=== PATIENT | female | born 1950 | race Caucasian/White ===

== ENCOUNTER 2018-08-06 15:25 | Emergency (ER) | payer BC, MEDICARE ==
[~2018-08-06 15:25] MED LIST: ISOVUE-370 76%-LOCM 1 ML ONE
[2018-08-06] MEDS ORDERED: Ondansetron PF 4 MG/2 ML Vial ONE (16:40)
[2018-08-06] MEDS ORDERED: Pantoprazole 40 MG VIAL ONE (16:40)
[2018-08-06 16:50] LABS: #Eosinphils 0.1 thou/uL (0.0-0.7); #Lymphocytes 2.1 thou/uL (1.20-3.40); #Monocytes 0.5 thou/uL (0.11-0.59); #Neutrophils 6.2 thou/uL (1.40-6.50); %Basophils 0.5 % (0.0-1.0); %Eosinophils 0.9 % (0.0-10.0); %Lymphocytes 23.7 % (21.0-51.0); %Monocytes 5.2 % (0.0-10.0); %Neutrophils 69.8 % (42.0-75.0); Hemoglobin 12.1 g/dL (12.0-16.0); Mean Corpuscular HGB CONC 32.2 g/dL (32.0-36.0); Mean Corpuscular Hemoglobin 28.5 pg (27.0-31.0); Mean Corpuscular Volume 88.5 fL (78.0-98.0); Mean Platelet Volume 6.2 fL (7.4-10.4); Platelet Count 341 thou/uL (130-400); RBC Distribution Width 12.7 % (11.5-14.5); Red Blood Cell (RBC) Count 4.26 mill/uL (4.20-5.40); White Blood Cell (WBC) Count 8.9 thou/uL (4.8-10.8)
[2018-08-06 16:55] LABS: INR-International Normal Ratio 0.9; PTT 18.7 SEC (22.9-36.1); Prothrombin Time 11.7 SEC (12.0-14.7)
[2018-08-06 17:06] LABS: ALT (SGPT) 14 U/L (8-55); AST (SGOT) 19 U/L (5-34); Albumin 4.3 g/dL (3.4-4.8); Alkaline Phosphatase 69 U/L (40-150); Anion Gap 15 mmol/L (10-20); BUN (Urea Nitrogen) 35 mg/dL (9.8-20.1); Bilirubin, Total 0.5 mg/dL (0.2-1.2); Calc. Creatinine Clearance 0 mL/min (70-130); Calcium 9.6 mg/dL (7.8-10.44); Carbon Dioxide 21 mmol/L (23-31); Chloride 106 mmol/L (98-107); Estimated GFR-MDRD 79; Globulin 2.8 g/dL (2.4-3.5); Glucose 108 mg/dL (80-115); Potassium 4.4 mmol/L (3.5-5.1); Protein, Total 7.1 g/dL (6.0-8.3); Sodium 138 mmol/L (136-145)
[2018-08-06] MEDS ORDERED: Promethazine HCl 25 MG/ML VIAL ONE (17:52)
--- NOTE | 2018-08-06 19:08 | CT ---
CT ABDOMEN AND PELVIS WITH IV CONTRAST: 08/06/18 Multiple axial tomograms obtained through the abdomen and pelvis with IV enhancement. INDICATIONS: Abdominal pain with nausea and weakness. Lung bases are clear. Liver, spleen, and pancreas unremarkable. Adrenal glands appear normal. Kidneys show no acute process. There are three low density cystic lesions in the left kidney each john suring 8 to 10 mm. No hydronephrosis. The small bowel loops are normal caliber. Appendix is not identified. Colon is unremarkable. Aorta sh ows atherosclerotic changes. Urinary bladder unremarkable. IMPRESSION: No acute process identified. POS: [facility]
== END 2018-08-06 19:00 | disposition home or self-care (01) ==
LOC: ERS 15:25
DX: R11.2 Nausea with vomiting, unspecified (principal); R10.13 Epigastric pain; I10 Essential (primary) hypertension; E78.5 Hyperlipidemia, unspecified; F32.9 Major depressive disorder, single episode, unspecified; F17.210 Nicotine dependence, cigarettes, uncomplicated
CPT/HCPCS: 74177; 80053; 82274; 83690; 83880; 84484; 85025; 85610; 85730; 86850; 86900; 86901; 93005; 94760; 96361; 96374; 96375; C9113; J2405; J2550; Q9966

== ENCOUNTER 2019-02-26 02:44 | Inpatient (IN) | payer BC, MEDICARE ==
[2019-02-26 03:26] LABS: Mean Corpuscular HGB CONC 32.8 g/dL (32.0-36.0); Mean Corpuscular Hemoglobin 26.3 pg (27.0-31.0); Mean Corpuscular Volume 80.2 fL (78.0-98.0); Mean Platelet Volume 8.1 fL (7.4-10.4); Platelet Count 267 thou/uL (130-400); RBC Distribution Width 17.5 % (11.5-14.5); Red Blood Cell (RBC) Count 4.56 mill/uL (4.20-5.40); White Blood Cell (WBC) Count 19.8 thou/uL (4.8-10.8)
[2019-02-26 03:27] LABS: Band 30 % (5-11); Crenated RBC SLIGHT = 1-5 cells (100X) (None Seen); Lymphocytes 3 % (21-51); MDiff Complete? YES; Neutrophil 67 % (42-75); Platelet Morphology Comment Appears Adequate
[2019-02-26] MEDS ORDERED: Norepinephrine 8 MG/0.9% NS 250 ML ONE (03:31)
[2019-02-26] MEDS ORDERED: Hydrocortisone Sod Succ/PF 100 mg/2 ml Vial ONE (04:51)
[2019-02-26 05:03] LABS: Bacteria/HPF 3+ HPF (None Seen); Bilirubin Negative (Negative); Blood, Urine 3+ (Negative); Clarity Extra Turbid (Clear); Glucose, Urine (Dipstick) Normal (Negative); Leukocyte 500 Leu/uL (Negative); Nitrite 2+ (Negative); Protein, Urine (Dipstick) 50 mg/dL (Neg-Trace); RBC/HPF 21-50 HPF (0-3); Squamous Epithelial 0-3 HPF (0-3); Urobilinogen Normal mg/dL (Less than 2); WBC/HPF Greater than 50 HPF (0-3)
[2019-02-26] MEDS ORDERED: EPINEPHrine 1 MG, Admixture Fee 1 EACH in Dextrose 5% in Water 250 ML IVPB SCH (05:15)
[2019-02-26 05:59] LABS: Lactic Acid 1.4 mmol/L (0.5-2.2)
[2019-02-26] MEDS: Sodium Chloride 0.9% 1,000 ML IV SCH ×2 (06:00→20:13)
[2019-02-26] MEDS ORDERED: Piperacillin/Tazobactam 3.375 GM in Sodium Chloride 0.9% 100 ML IVPB SCH (06:00)
[2019-02-26] MEDS ORDERED: Norepinephrine 8 MG/0.9% NS 250 ML IVPB SCH (06:05)
[2019-02-26] MEDS: Dextrose 5 % And 0.9 % NaCl 1,000 ML IV SCH ×2 (07:00→08:19)
--- NOTE | 2019-02-26 07:01 | HP ---
PRESENTING COMPLAINT: Weakness and recurrent diarrhea. HISTORY OF PRESENT ILLNESS: Ms. Carlee Rowan is a 69-year-old female with past medical history of hypertension, pacemaker placement, and hyperlipidemia, who presented today because of increasing weakness since the last 1 week as well as diarrhea since 1 week. The patient has felt very fatigued this evening and has gone to the Urgent Care. There, she was noted with hypotension with systolic blood pressure in the 70s over 40s. She was given IV fluid. She was noted with a hemoglobin of 8.2 and given 2 units of PRBC and transferred to the emergency room. In the emergency room, repeat hemoglobin is up to 12. The patient still continued to have hypotension and she has been started on Levophed. She has received an extra 1 L of bolus totaling 3 L and her blood pressure is still 80/40. The patient is mentating, though admits to fatigue. She states she has been having diarrhea with noted black tarry stools since the last couple of days. Rectal exam in the ED shows blood in the gloves finger. ED staff reported that the patient initially had oozing in her diaper on presentation, but oozing has since stopped. The patient denies any nausea or vomiting. She denies any chest pain. She is unsure of her home medications, which she did not bring with her. She denies any prior history of GI bleed or EGD in the past. SOCIAL HISTORY: Patient admits to tobacco use, smokes about a pack a day. She denies any alcohol or illicit drug use. She lives alone in the community. She states she has a son who lives in the nearby area. PAST MEDICAL HISTORY: Hypertension, hyperlipidemia, pacemaker placement. PAST SURGICAL HISTORY: Pacemaker placement. ALLERGIES: NO KNOWN DRUG ALLERGIES. HOME MEDICATIONS: Not available. The patient does not know her medications. FAMILY HISTORY: She denies any history of CAD or colon cancer. REVIEW OF SYSTEMS: Poor given the patient's fatigue, but the patient denies every other symptoms except as noted above. PHYSICAL EXAMINATION: VITAL SIGNS: Current blood pressure of 85/40, pulse of 90, respiratory rate of 18, O2 saturation is 94 on room air, temperature of 99.5. GENERAL: Elderly-looking female, calm, not in any distress. HEENT: Pupils equal and reactive to light. Extraocular motor movement intact. Head is atraumatic, normocephalic. Lynch conjunctivae now. Dry oral mucosa. RESPIRATORY: Good air entry. No crepitation. CARDIOVASCULAR: S1, S2. No murmur. GI: Abdomen is full, soft, nontender. Bowel sounds positive. RECTAL: Noticed some areas of abrasion around the perianal area, but no active oozing. Tenderness on palpation of the area. Previous rectal exam conducted by the ED physician. EXTREMITIES: No calf tenderness. No pedal edema. NEURO: Patient is slightly fatigued, but conversant. Moving all extremities well. LABORATORY DATA: Initial labs at [facility] facility shows PT of 16.9, INR of 1.4, and PTT 28. Sodium 133, potassium 3.4, bicarb 16, BUN 85, creatinine 1.6. T bilirubin of 0.3, albumin of 2.1. Initial hemoglobin of 8.2. Repeat labs showed WBC of 19.8, hemoglobin of 12, platelets of 267, 30% bands. Chest x-ray shows no acute abnormality. Urinalysis shows greater than 50 wbc's with 21 to 50 rbc's and 3+ bacteria. IMPRESSION: 1. Septic shock. 2. Gastrointestinal bleed. 3. Hypotension. 4. Urinary tract infection. 5. History of pacemaker placement. PLAN: 1. Septic shock. Admit the patient to the intensive care unit. We will continue IV pressors with Levophed. We will give extra IV fluid boluses for another 2 L and continue to monitor H and H. We will start empirical antibiotics with Vanco, Zosyn and Levaquin. We will obtain blood culture x2. Follow repeat lactic acid level. 2. GI bleed. We will keep patient n.p.o. GI has been consulted. We will start IV Protonix drip. 3. Urinary tract infection, may be etiology of sepsis. Follow urine culture. Continue Levaquin and Zosyn. 4. Advance directives. The patient wishes to be full code. 5. Tobacco use. We will do nicotine patch. 6. DVT prophylaxis. We will do SCDs. No systemic heparin for now. Total time spent in review of record, discussion with patient, and evaluation, greater than 60 minutes. Job ID: [id number]
--- NOTE | 2019-02-26 08:04 | RAD ---
XR Chest 1 View Portable History: Central line placement Comparison: Radiograph same day Findings: New right IJ central venous catheter with tip poorly seen due to the overlying pacer wires Impression: No pneumothorax post IJ central venous catheter placement.
[2019-02-26] MEDS: Piperacillin/Tazobactam 3.375 GM in Sodium Chloride 0.9% 100 ML IVPB SCH ×3 (08:08→20:11)
[2019-02-26] MEDS: Pantoprazole 80 MG, Admixture Fee 1 EACH in Sodium Chloride 0.9% 100 ML IVP SCH ×2 (08:12→18:34)
[2019-02-26 10:13] LABS: Anion Gap 12 mmol/L (10-20); BUN (Urea Nitrogen) 68 mg/dL (9.8-20.1); Calc. Creatinine Clearance 45 mL/min (70-130); Calcium 7.3 mg/dL (7.8-10.44); Carbon Dioxide 19 mmol/L (23-31); Chloride 110 mmol/L (98-107); Estimated GFR-MDRD 41; Glucose 144 mg/dL (80-115); Potassium 3.9 mmol/L (3.5-5.1); Sodium 137 mmol/L (136-145)
[2019-02-26 10:21] LABS: Troponin I Less than 0.010 ng/mL (< 0.028)
[2019-02-26] MEDS: Nicotine 14 MG PATCH TD SCH (11:32)
[2019-02-26 12:32] LABS: Hemoglobin 9.3 g/dL (12.0-16.0)
[2019-02-26] MEDS ORDERED: Sodium Chloride 0.9% 1,000 ML IV SCH (13:30)
[2019-02-26] MEDS: Sodium Chloride 0.45% 1,000 ML IV SCH ×2 (14:11→18:35)
[2019-02-26] MEDS ORDERED: Heparin 1,000 UNITS/ML VIAL ONE (15:14)
[2019-02-26] MEDS: valACYclovir 500 MG TAB PO SCH (20:13)
--- NOTE | 2019-02-26 22:02 | CON ---
DATE OF CONSULTATION: 02/26/2019 REASON FOR CONSULT: Hematochezia. HISTORY OF PRESENT ILLNESS: Ms. Bejarano is a pleasant 69-year-old female who was transferred from an outside emergency room with melena and a concern for sepsis. She apparently was given 2 units of blood at the outside facility before arrival here. She reports that she got ill about 2 weeks ago with dry heaves and diarrhea. The vomiting was nonproductive. There was not a lot of abdominal pain and she began to have diarrhea with grainy dark stool that was very liquid like and very slimy. Ultimately, she began to get weaker and weaker and finally came to the emergency room. Her hemoglobin back in July of this year was 12.1; at midnight last night, her hemoglobin was 8.2. The MCV was noted to be 75. Her platelet count was 292. She received 2 units of blood here and her hemoglobin was 12 at 3 this morning. Here, she was started on pressors with initially Levophed and epi, she is just on 6 mcg of epi now. She has been started on a Protonix drip as well. She has had no vomiting and no bowel movements. She was given a liter of fluid on arrival to the ICU and she is going at 150 mL an hour now. In the outside emergency room, she had a hemoglobin of 8.2 and a white count of 18. Her BUN was 85 and her creatinine was 1.6 . The patient states she takes a 1000 mg of Motrin daily. PAST MEDICAL HISTORY: Hypertension, hyperlipidemia, pacemaker placement, stent placement. PAST SURGICAL HISTORY: section, cholecystectomy. She has had her tubal ligation. She has had 2 cardiac stents. She sees Dr. Raul Purvis for Cardiology. Hysterectomy, some orthopedic surgery on her feet as well. SOCIAL HISTORY: She denies alcohol. She does smoke. She used to do drugs a long time ago, even including IV drugs. She reports that she has been tested for hepatitis C and has been negative. MEDICINES: She does not have a good feel for her home medicines. At home, the only thing she recalls is the sertraline. Medications here: 1. Tylenol. She has been started on: 1. Fluzone. 2. Levofloxacin. 3. Nicotine patch. 4. Levophed down to 6. 5. Protonix drip. 6. Zosyn. 7. Pneumococcal injection for immunization. 8. Zoloft. 9. Normal saline half at 150 an hour. 10. Valtrex. 11. Vancomycin. PHYSICAL EXAMINATION: GENERAL: She is resting comfortably in bed. VITAL SIGNS: Pulse is 65, blood pressure 106/62, temperature is 98, she has been afebrile since admission. In's and out's out through her Palencia catheter. GENERAL: She is pale. Conjunctivae are pale. Sclerae are nonicteric. Oropharynx without lesions, it is somewhat dry. LUNGS: Clear. HEART: Regular rate and rhythm without clicks, rubs, or murmurs. ABDOMEN: Soft. Positive bowel sounds. EXTREMITIES: No clubbing, cyanosis, or edema. RECTAL: Perianal excoriation is present. Melena is noted on rectal exam. LABORATORY DATA: Hemoglobin at 12 was 9.3; BUN, at 9, was down to 68, creatinine 1.28, calcium 7.7, alkaline phosphatase is 148, AST and ALT were 16 and 9, protein 5, albumin 2. Troponins were negative. Urine showed white blood cells, greater than 50 red blood cells, positive blood and nitrites. IMAGING: She had a chest x-ray that was negative. ASSESSMENT: Melena. This could be the whole problem and it sounds like she was having coffee-ground like stool and slimy stools for 2 weeks after heavy retching. She uses NSAIDs 1000 mg a day. She probably has an ulcer. She has had no bowel movement since admission. She is being still on some pressors, probably needs to be switched to normal saline for resuscitation fluids. Her elevated BUN indicated there was severe prerenal azotemia on admission with dehydration from hemorrhagic shock or possibly some type of infectious process or she may have just had elevated BUN related blood absorption in the GI tract. RECOMMENDATIONS: 1. Follow up on blood cultures from [facility]. 2. Serial H and Hs. 3. N.p.o. 4. EGD tomorrow. 5. Change IV fluid to normal saline from half-normal saline. Job ID: [id number]
[2019-02-26 22:14] LABS: Hemoglobin 8.6 g/dL (12.0-16.0)
--- NOTE | 2019-02-27 01:44 | CON ---
DATE OF CONSULTATION: HISTORY OF PRESENT ILLNESS: Ms. Bejarano is a 69-year-old female, who was interviewed this morning. Per her history, she has not felt good for several weeks. She has had diarrhea and progressive weakness. A month ago, she said she was doing great. Her family confirms that. She apparently presented with hypotension after presenting to urgent care. She is subsequently also found to be anemic and since she was hypotensive and anemic, she was transfused. She received IV fluids and pressors and central line and subsequently has been admitted. PAST MEDICAL HISTORY: Remarkable for hypertension, lipid disorder, and pacemaker. She is a pack-a-day smoker. She does not drink. She lives alone. FAMILY HISTORY: Negative for lung disease in early age. ALLERGIES: REPORTS NO DRUG ALLERGIES. REVIEW OF SYSTEMS: 10-point review of systems otherwise negative. She denies nausea, vomiting, or bloody diarrhea. PHYSICAL EXAMINATION: GENERAL: She is little slow to respond to questions, but looks reasonably comfortable. VITAL SIGNS: Heart rate is in the 60s, blood pressure is 117/78 this evening, respiratory rate is 20, oximetry is 97%. Pupils are equal. Sclerae are anicteric. NECK: Supple. No lymphadenopathy. LUNGS: Clear. HEART: Regular rhythm. S1, S2 are normal. ABDOMEN: Soft and nontender. EXTREMITIES: Without clubbing, cyanosis, or edema. LABORATORY DATA: Hemoglobin at 3 o'clock this morning was 12; at noon, it was 9.3. Electrolytes remarkable for an increased chloride at 110 and decreased bicarb at 19, BUN 68, creatinine 1.28. Creatinine was 1.61 at midnight. IMPRESSION: 1. Intravascular volume depletion. 2. Probable mixed anemia with some component of blood loss, although, she is not acutely bleeding now. 3. Hyperchloremic acidosis secondary to volume resuscitation. First bicarb is 103, now is 110. Fluids have been switched to half-normal saline. 4. She will remain in the critical care unit. GI has been consulted. It is anticipated she will have endoscopy in the morning. 5. It is interesting to note that she has an albumin of 2.1, which is unexplained. Urinalysis did not show significant proteinuria. No coags have been collected. We will follow the other physicians caring for. 70 minute consult with 50% of time on unit coordinating care Job ID: [id number] [facility]
[2019-02-27] MEDS: Pantoprazole 80 MG, Admixture Fee 1 EACH in Sodium Chloride 0.9% 100 ML IVP SCH (02:04)
[2019-02-27] MEDS: Piperacillin/Tazobactam 3.375 GM in Sodium Chloride 0.9% 100 ML IVPB SCH ×2 (02:04→07:53)
[2019-02-27] MEDS: Sodium Chloride 0.45% 1,000 ML IV SCH ×3 (02:04→14:00)
[2019-02-27] MEDS ORDERED: Vancomycin HCl 1 GM in Premix Bag 1 BAG IVPB SCH (04:00)
[2019-02-27 04:49] LABS: Anion Gap 10 mmol/L (10-20); BUN (Urea Nitrogen) 35 mg/dL (9.8-20.1); Calc. Creatinine Clearance 64 mL/min (70-130); Calcium 7.4 mg/dL (7.8-10.44); Carbon Dioxide 20 mmol/L (23-31); Chloride 116 mmol/L (98-107); Estimated GFR-MDRD 61; Glucose 108 mg/dL (80-115); Potassium 3.6 mmol/L (3.5-5.1); Sodium 142 mmol/L (136-145)
[2019-02-27 04:57] LABS: HIV (1/2) Antibody/Antigen Non-Reactive (NonReactive); HIV 1/2 INDEX 0.08 S/CO (<1.00)
[2019-02-27 05:15] LABS: Anisocytosis SLIGHT = 6-15 cells (100X) (0-5/hpf); Band 25 % (5-11); Burr Cells SLIGHT = 2-5 cells (100X) (0-1/hpf); Hemoglobin 8.4 g/dL (12.0-16.0); Lymphocytes 4 % (21-51); MDiff Complete? YES; Mean Corpuscular HGB CONC 33.4 g/dL (32.0-36.0); Mean Corpuscular Hemoglobin 26.9 pg (27.0-31.0); Mean Corpuscular Volume 80.5 fL (78.0-98.0); Mean Platelet Volume 7.9 fL (7.4-10.4); Monocytes 2 % (0-10); Neutrophil 69 % (42-75); Platelet Count 291 thou/uL (130-400); Platelet Morphology Comment Appears Adequate; RBC Distribution Width 17.7 % (11.5-14.5); Red Blood Cell (RBC) Count 3.11 mill/uL (4.20-5.40); White Blood Cell (WBC) Count 17.9 thou/uL (4.8-10.8)
[2019-02-27] MEDS: Nicotine 14 MG PATCH TD SCH (06:05)
[2019-02-27 06:20] LABS: Hemoglobin 8.5 g/dL (12.0-16.0)
[2019-02-27] MEDS: valACYclovir 500 MG TAB PO SCH (08:15)
[2019-02-27] MEDS ORDERED: PHENYLEPHRINE-NS 100 MCG/ML 10 ML SYRINGE ONE (09:24)
[2019-02-27] MEDS ORDERED: Lidocaine 1% PF 5 ML VIAL ONE (09:24)
[2019-02-27] MEDS ORDERED: ePHEDrine/0.9% NaCl/PF SYRINGE 50 mg/10 ml ONE (09:24)
[2019-02-27] MEDS ORDERED: PROPOFOL 200 MG/20 ML VIAL ONE (09:24)
[2019-02-27] MEDS ORDERED: Promethazine HCl 25 MG/ML VIAL SLOW IVP PRN (11:46)
[2019-02-27] MEDS ORDERED: Ondansetron HCl/PF 4 MG/2 ML Vial IVP PRN (11:46)
[2019-02-27] MEDS ORDERED: Promethazine HCl 25 MG/ML VIAL IM PRN (11:46)
[2019-02-27] MEDS ORDERED: Prevnar 13-Val Conj/PF 0.5 ML SYRINGE IM ONE (12:15)
[2019-02-27] MEDS ORDERED: FLU VACC TS2019-20(65YR UP)/PF 180 MCG/0.5 ML SYRINGE IM ONE (12:15)
--- NOTE | 2019-02-27 13:31 | PRG ---
DATE OF SERVICE: 02/27/2019 SUBJECTIVE: The patient was seen and examined at the bedside. She feels significantly better. She had 3 black tarry stools in the last 24 hours. OBJECTIVE: VITAL SIGNS: Blood pressure is 116/70, pulse is 61, respiratory rate is 19, and O2 saturation 97%. HEENT: Her head is atraumatic and normocephalic. Eyes are PERRLA. Sclerae are nonicteric. Conjunctivae palish. Oral mucosa is still somewhat dry. NECK: Supple. LUNGS: Clear. HEART: S1, S2 normal. No S3. No S4. ABDOMEN: Soft. Mildly tender in the epigastric area. No guarding. No masses. EXTREMITIES: No clubbing, cyanosis, or edema. NEUROLOGIC: She is alert and oriented x4. There are no any motor deficits. LABORATORY DATA: Labs showed hemoglobin of 8.4, hematocrit 25.0, white count of 17.9, and platelet count 291,000. Sodium of 142, potassium 3.6, chloride 116, CO2 of 20, BUN 35, creatinine 0.91, and calcium 7.4. HIV 1 and 2 antigen and antibodies not reactive. IMPRESSION: 1. Sepsis with shock and positive blood cultures 2/2 for Escherichia coli. Source is urinary tract, which is urine culture growing the same organism, Escherichia coli sensitivity pending. 2. Gastrointestinal bleed, for EGD. This morning, her hemoglobin dropped from 12 to 8. 3. Hypotension, secondary to #1. 4. Urinary tract infection with Escherichia coli. 5. History of pacemaker placement. PLAN: I am going to stop her vancomycin and Levaquin. We will continue Zosyn. We will continue her PPI. She was scheduled for EGD today. We will continue her Zoloft, and we just found out that she has been taking some other medications. She did not tell us about yesterday, so we will reconcile that, and most likely, we will make some addition to her current regimen. She will remain in ICU until she is more stable. Job ID: [id number]
--- NOTE | 2019-02-27 13:49 | ULT ---
EXAM: US Renal Bilateral STANDARD PROVIDED CLINICAL HISTORY: Sepsis COMPARISON: None FINDINGS: Right kidney measures approximately 11.8 x 6 x 6.3 cm and demonstrates no evidence for hydronephrosis , sonographically apparent calculus or mass. Left kidney measures approximately 13.3 x 5.6 x 6.9 cm and demonstrates no evidence for hydronephrosi s, sonographically apparent calculus or mass. Urinary bladder appears sonographically unremarkable. IMPRESSION: No evidence for hydronephrosis.
--- NOTE | 2019-02-27 13:53 | PRG ---
DATE OF SERVICE: 02/27/2019 SUBJECTIVE: Ms. Bejarano says she is feeling better. She was found to have an ulcer. This was biopsied. Hemodynamics have been stable. OBJECTIVE: VITAL SIGNS: She is afebrile. Heart rate is 72, blood pressure 116/70, oximetry is 95%. LUNGS: Clear. HEART: Regular rate, rhythm. ABDOMEN: Soft. EXTREMITIES: Without edema. NEUROLOGIC: Grossly nonfocal. LABORATORY DATA: White count 17.9, hemoglobin 8.4, platelets 291. Hemoglobin stable at 8.5. Sodium 142, potassium 3.6, chloride 116, bicarb 20, BUN 35, creatinine 0.91. IMPRESSION: 1. Anemia and hypotension, likely secondary to combination of intravascular volume depletion and a slowly or intermittently bleeding ulcer. 2. Pack-a-day smoker, and she was wheezing earlier today, but is not now. 3. History of chronic nonsteroidal use. Apparently, she was taking 1 g of ibuprofen a day. 4. Mild hyperchloremic acidosis, most likely related to volume resuscitation. PLAN: Continue current care. She probably is stable to move out in the morning. She is a candidate to move to a medical bed this evening really if bed is needed if she has a good afternoon. ADDENDUM: It is incidentally noted that she has a urinary tract infection with E coli. We are awaiting sensitivities. She will continue on Zosyn. I will discontinue her Levaquin. Job ID: [id number]
[2019-02-27 13:58] LABS: Hemoglobin 8.5 g/dL (12.0-16.0)
[2019-02-27 14:18] VITALS: BMI 25.9
[2019-02-27] MEDS: Pantoprazole 40 MG VIAL IVP SCH (20:38)
[2019-02-28] MEDS: Ondansetron PF 4 MG/2 ML Vial IVP PRN (01:35)
[2019-02-28] MEDS: Sodium Chloride 0.45% 1,000 ML IV SCH ×2 (02:45→13:42)
[2019-02-28 06:02] LABS: Anisocytosis SLIGHT = 6-15 cells (100X) (0-5/hpf); Band 18 % (5-11); Burr Cells SLIGHT = 2-5 cells (100X) (0-1/hpf); Hemoglobin 8.1 g/dL (12.0-16.0); Hypochromia SLIGHT = 6-15 cells (100X) (0-5/hpf); Lymphocytes 4 % (21-51); MDiff Complete? YES; Mean Corpuscular Hemoglobin 24.7 pg (27.0-31.0); Mean Corpuscular Volume 79.6 fL (78.0-98.0); Mean Platelet Volume 7.9 fL (7.4-10.4); Monocytes 2 % (0-10); Neutrophil 76 % (42-75); Platelet Count 368 thou/uL (130-400); Platelet Morphology Comment Appears Adequate; Red Blood Cell (RBC) Count 3.27 mill/uL (4.20-5.40); White Blood Cell (WBC) Count 13.6 thou/uL (4.8-10.8)
[2019-02-28] MEDS: Nicotine 14 MG PATCH TD SCH (06:03)
[2019-02-28] MEDS: Pantoprazole 40 MG VIAL IVP SCH ×2 (08:37→20:09)
[2019-02-28] MEDS ORDERED: Cepastat Lozenges 1 LOZ PO PRN (11:37)
--- NOTE | 2019-02-28 12:58 | PRG ---
DATE OF SERVICE: 02/26/2019 SUBJECTIVE: Ms. Bejarano is doing well in the ICU. She is complaining of burning mouth. She has had no bleeding. OBJECTIVE: VITAL SIGNS: Heart rate is 77, temperature max is 100.3, blood pressure 126/63. GENERAL: She is very pale. She is thin. She is deconditioned. CHEST: Clear. HEART: Regular rhythm. ABDOMEN: Nontender. LABORATORY DATA: White count down from 17 to 13, hemoglobin is 8.1, platelet count 368. BUN and creatinine are 35 and 0.9, down from 68 and 1.2. Sodium is 142. Potassium is 3.6. ASSESSMENT: 1. GI hemorrhage secondary to a large gastric and duodenal ulcers, likely related to chronic NSAID use. 2. Diarrhea. C. difficile toxin negative. 3. Stable hemoglobin with no active bleeding. 4. E. coli urinary tract infection. RECOMMENDATIONS: 1. Continue IV PPI. 2. Advance diet as tolerated. 3. Avoid NSAIDs. 4. Await gastric and duodenal biopsies. Job ID: [id number]
--- NOTE | 2019-02-28 13:17 | PRG ---
DATE OF SERVICE: 02/28/2019 SUBJECTIVE: Ms. Bejarano has no complaints. OBJECTIVE: VITAL SIGNS: Heart rate is 72, blood pressure 126/63, and respiratory rate is 15. Intake and output are positive 840 mL. LUNGS: Clear. HEART: Regular rhythm. ABDOMEN: Soft and nontender. EXTREMITIES: Without edema. DIAGNOSTIC DATA: She is in sinus rhythm. White count is 13.6, hemoglobin 8.1, and platelets 368. Sodium 142, potassium 3.6, chloride 116, bicarb 20, BUN 35, and creatinine 0.91. IMPRESSION: 1. Anemia and hypotension secondary to combination of intravascular volume depletion and a slow gastrointestinal bleed. 2. Pack-a-day smoker. 3. 1000 mg a day of ibuprofen use, which contributed to her ulcer most likely. 4. Mild hyperchloremic acidosis. PLAN: She in my opinion to go to a medical bed if there are no telemetry beds. She is actually stable enough to go home. In my opinion, she can become ambulatory. She does have 18% bands on her peripheral smear today, but had 25% yesterday, so this is an improvement. Her maximum temperature is 100.3. Her Zosyn has been discontinued. I would continue to observe her with serial lab work. She is stable to move out of Critical Care. Job ID: [id number]
--- NOTE | 2019-02-28 13:20 | OP ---
DATE OF PROCEDURE: 02/27/2019 PREPROCEDURE DIAGNOSES: 1. Gastrointestinal hemorrhage with hemorrhagic shock, resolved. 2. Heavy use of NSAIDs. PROCEDURE PERFORMED: Esophagogastroduodenoscopy with biopsy. POSTPROCEDURE DIAGNOSES: 1. Large white based gastric ulcer 2 cm posterior wall of the gastric antrum. 2. Small erosions and ulcerations in the gastric antrum, body, nonbleeding, again likely secondary to NSAIDs. Biopsies obtained for Helicobacter pylori. 3. Duodenal ulcer, apex of the bulb and second portion with no active bleeding, biopsied. RECOMMENDATIONS: 1. IV Protonix q.12 hours. 2. Clear liquid diet. 3. Await biopsies. 4. Avoid all NSAIDs. ANESTHESIA: TIVA. PROCEDURE IN DETAIL: The patient was informed of the risks and benefits and possible complications of endoscopy including perforation, reaction to this medication. Informed consent was obtained. She was brought to the endoscopy suite, where she was sedated in gradual fashion. Once she was comfortable, bite block was placed inside the orifice. The endoscope was advanced through the esophagus, where there was old pill debris noted into the stomach, where there was no blood, but retroflexed views were normal. On evaluating the antrum of the stomach, there was a large 2-cm ulcer in the posterior wall of the antrum, white based, shallow, but there was no visible vessels. There was also small scattered erosions and ulcerations in the antrum consistent with NSAID ulceration. Biopsies were obtained to rule out H pylori malignancy. The scope was advanced to the duodenal bulb, which was normal. However, at the apex of the bulb and the second and third portions, there were friable ulcers with some slight ooze, but no visible vessels or active hemorrhage or clot. Biopsies were taken from these as well. The third portion of duodenum was normal. The scope was removed. The patient tolerated the procedure well. There were no complications. Job ID: [id number]
--- NOTE | 2019-02-28 19:30 | PDOC.HOSPP ---
- Subjective Encounter Date: 02/28/19 Encounter Time: 19:15 Subjective: f/u for GI bleed medically managed but no PRBC's required. Tx initially for sepsis but not on abx currently. - Objective Vital Signs & Weight: Vital Signs (12 hours) Temp Pulse Resp Pulse Ox 02/28/19 18:59 94 L 02/28/19 18:58 81 22 H 94 L 02/28/19 16:00 98.9 F 02/28/19 08:00 98.9 F 97 Weight Admit Weight 151 lb 7.321 oz Weight 151 lb 7.321 oz Most Recent Monitor Data Heart Rate from ECG 79 NIBP 134/67 NIBP BP-Mean 89 Respiration from ECG 23 SpO2 82 I&O: 02/27/19 02/28/19 03/01/19 06:59 06:59 06:59 Intake Total 4706 2865 888 Output Total 2660 2025 725 Balance 2046 840 163 Result Diagrams: 02/28/19 03:35 02/27/19 03:30 Additional Labs: Microbiology 02/27/19 12:10 Stool C. difficile GDH Antigen & Toxins - Final 02/26/19 04:40 Urine anderson catheter Urine Culture - Final Escherichia coli 02/26/19 01:00 Stool - Pending Stool Occult Blood (JOE) - Final 02/26/19 00:35 Venous blood - Neck Blood Culture - Final Escherichia coli 02/26/19 00:35 Venous blood - Neck Blood Culture - Final Escherichia coli 02/26/19 01:20 Urine Straight Catheter Urine Culture - Preliminary Escherichia coli Gram Negative Miguel A#2 Laboratory Tests 02/26/19 02/26/19 02/26/19 09:44 12:19 22:01 Hgb 9.3 L 8.6 L Band Neuts % (Manual) BUN 68 H Creatinine 1.28 H 02/27/19 02/27/19 02/27/19 03:30 06:05 13:45 Hgb 8.4 L 8.5 L 8.5 L Band Neuts % (Manual) 25 H BUN Creatinine 02/28/19 03:35 Hgb Band Neuts % (Manual) 18 H BUN Creatinine Radiology Reviewed by me: Yes (Renal sono - no hydronephrosis) EKG Reviewed by me: Yes (Tele - SR) Hospitalist ROS - Medication Medications: Active Medications Generic Name Dose Route Start Last Admin Trade Name Freq PRN Reason Stop Dose Admin Albuterol/Ipratropium 3 ml 02/28/19 01:55 02/28/19 18:58 Duoneb NEB 3 ml Q6H PRN Administration SOB/WHEEZE Sodium Chloride 1,000 mls @ 75 mls/hr 02/27/19 13:15 02/28/19 13:42 1/2 Normal Saline IV 1,[id number] Administration Nicotine 14 mg 02/26/19 06:15 02/28/19 06:03 Nicoderm Patch TD [address] Administration Ondansetron HCl 4 mg 02/26/19 06:09 02/28/19 01:35 Zofran IVP 4 mg Q6H PRN Administration Nausea/Vomiting Pantoprazole Sodium 40 mg 02/27/19 21:00 02/28/19 08:37 [address]ix IVP [address] Administration Sertraline HCl 50 mg 02/27/19 09:00 02/28/19 08:37 Zoloft PO [address] Administration Throat Lozenges 1 kaylee 02/28/19 11:37 02/28/19 12:16 Cepastat Lozenges PO 1 kaylee PRN PRN Administration ORAL PAIN - Exam General Appearance: NAD, awake alert Eye: PERRL, anicteric sclera ENT: normocephalic atraumatic, no oropharyngeal lesions Neck: supple, symmetric, no JVD, no thyromegaly Heart: RRR, no murmur, no gallops, no rubs Respiratory: CTAB, no wheezes, no rales, no ronchi Gastrointestinal: soft, non-tender, non-distended, normal bowel sounds Extremities: no cyanosis, no clubbing, no edema Skin: normal turgor, no lesions Neurological: cranial nerve grossly intact, no new deficit Musculoskeletal: normal tone, normal strength Psychiatric: normal affect, A&O x 3 Hosp A/P (1) Septic shock Code(s): A41.9 - SEPSIS, UNSPECIFIED ORGANISM; R65.21 - SEVERE SEPSIS WITH SEPTIC SHOCK Status: Acute Plan: Secondary to E. coli bacteremia from urinary source, start Cefepime, ? Zosyn previously (2) E coli bacteremia Code(s): R78.81 - BACTEREMIA Status: Acute Plan: Start Cefepime 1gm IV BID (3) GI bleed Code(s): K92.2 - GASTROINTESTINAL HEMORRHAGE, UNSPECIFIED Status: Acute Plan: Secondary to gastric/duodenal ulcers, no PRBC's transfused, PPI, serial H/H, avoid NSAIDs (4) Gastric ulcer Code(s): K25.9 - GASTRIC ULCER, UNSP ACUTE OR CHRONIC, W/O HEMOR OR PERF Status: Acute Plan: See above (5) Acute blood loss anemia Code(s): D62 - ACUTE POSTHEMORRHAGIC ANEMIA Status: Acute (6) LEIGH ANN (acute kidney injury) Code(s): N17.9 - ACUTE KIDNEY FAILURE, UNSPECIFIED Status: Acute Plan: Improved with volume replacement, avoid nephrotoxic meds and limit contrast exposure - Plan continue antibiotics, social service coordinator, DVT proph w/SCDs Stable currently Cefepime 1gm IV BID Continue IVF's Continue Protonix 40mg IV BID Restoril 15mg HS for insomnia AM lab: CBC
[2019-02-28] MEDS ORDERED: Temazepam 15 MG CAP PO PRN (19:41)
[2019-02-28] MEDS ORDERED: Melatonin 3 MG TAB PO PRN (19:41)
[2019-02-28] MEDS: Cefepime 1 GM in Sodium Chloride 0.9% 100 ML IVPB SCH (20:09)
[2019-03-01 05:48] LABS: Band 6 % (5-11); Eosinophils 1 % (0-10); Hemoglobin 7.8 g/dL (12.0-16.0); Lymphocytes 8 % (21-51); MDiff Complete? YES; Mean Corpuscular HGB CONC 33.4 g/dL (32.0-36.0); Mean Corpuscular Hemoglobin 26.6 pg (27.0-31.0); Mean Corpuscular Volume 79.7 fL (78.0-98.0); Mean Platelet Volume 7.9 fL (7.4-10.4); Monocytes 6 % (0-10); Neutrophil 79 % (42-75); Platelet Count 399 thou/uL (130-400); RBC Distribution Width 17.7 % (11.5-14.5); Red Blood Cell (RBC) Count 2.94 mill/uL (4.20-5.40); White Blood Cell (WBC) Count 8.6 thou/uL (4.8-10.8)
[2019-03-01] MEDS: Sodium Chloride 0.45% 1,000 ML IV SCH (06:10)
[2019-03-01] MEDS: Nicotine 14 MG PATCH TD SCH (06:10)
[2019-03-01] MEDS: Pantoprazole 40 MG VIAL IVP SCH (08:42)
[2019-03-01] MEDS: Cefepime 1 GM in Sodium Chloride 0.9% 100 ML IVPB SCH ×2 (08:43→20:52)
--- NOTE | 2019-03-01 09:54 | PDOC.HOSPP ---
- Subjective Encounter Date: 03/01/19 Encounter Time: 09:35 Subjective: f/u for GI bleed due to gastric ulceration and 2u PRBC's prior to ER evaluation and sepsis with E. coli bacteremia on current Cefepime. States feeling better overall but diminished appetite. - Objective Vital Signs & Weight: Vital Signs (12 hours) Temp Pulse Resp BP Pulse Ox 03/01/19 08:00 98.4 F 83 18 110/82 98 03/01/19 05:29 20 99 03/01/19 04:00 98.7 F 03/01/19 00:00 98.7 F Weight Admit Weight 151 lb 7.321 oz Weight 151 lb 7.321 oz Most Recent Monitor Data Heart Rate from ECG 78 NIBP 110/82 NIBP BP-Mean 91 Respiration from ECG 14 SpO2 88 I&O: 02/28/19 03/01/19 03/02/19 06:59 06:59 06:59 Intake Total 2865 1868 Output Total 2025 1225 Balance 840 643 Result Diagrams: 03/01/19 04:05 02/27/19 03:30 Additional Labs: Microbiology 02/27/19 12:10 Stool C. difficile GDH Antigen & Toxins - Final 02/26/19 04:40 Urine anderson catheter Urine Culture - Final Escherichia coli 02/26/19 01:00 Stool - Pending Stool Occult Blood (JOE) - Final 02/26/19 00:35 Venous blood - Neck Blood Culture - Final Escherichia coli 02/26/19 00:35 Venous blood - Neck Blood Culture - Final Escherichia coli 02/26/19 01:20 Urine Straight Catheter Urine Culture - Preliminary Escherichia coli Gram Negative Miguel A#2 Laboratory Tests 02/26/19 02/26/19 02/26/19 09:44 12:19 22:01 WBC Hgb 9.3 L 8.6 L Neutrophils % (Manual) Band Neuts % (Manual) BUN 68 H Creatinine 1.28 H 02/27/19 02/27/19 02/27/19 03:30 06:05 13:45 WBC Hgb 8.4 L 8.5 L 8.5 L Neutrophils % (Manual) Band Neuts % (Manual) 25 H BUN Creatinine 02/28/19 03/01/19 03:35 04:05 WBC 13.6 H Hgb 8.1 L Neutrophils % (Manual) 76 H 79 H Band Neuts % (Manual) 18 H 6 BUN Creatinine Hospitalist ROS - Medication Medications: Active Medications Generic Name Dose Route Start Last Admin Trade Name Freq PRN Reason Stop Dose Admin Albuterol/Ipratropium 3 ml 02/28/19 01:55 03/01/19 05:29 Duoneb NEB 3 ml Q6H PRN Administration SOB/WHEEZE Sodium Chloride 1,000 mls @ 75 mls/hr 02/27/19 13:15 03/01/19 06:10 1/2 Normal Saline IV 1,[id number] Administration Cefepime HCl 1 gm/ Sodium 100 mls @ 200 mls/hr 02/28/19 21:00 03/01/19 08:43 Chloride IVPB [address] Administration Melatonin 3 mg 02/28/19 19:41 02/28/19 20:08 Melatonin PO 3 mg HS PRN Administration Insomnia Nicotine 14 mg 02/26/19 06:15 03/01/19 06:10 Nicoderm Patch TD [address] Administration Ondansetron HCl 4 mg 02/26/19 06:09 02/28/19 01:35 Zofran IVP 4 mg Q6H PRN Administration Nausea/Vomiting Pantoprazole Sodium 40 mg 02/27/19 21:00 03/01/19 08:42 [address]ix IVP [address] Administration Sertraline HCl 50 mg 03/01/19 09:00 03/01/19 08:43 Zoloft PO [address] Administration Throat Lozenges 1 kaylee 02/28/19 11:37 02/28/19 12:16 Cepastat Lozenges PO 1 kaylee PRN PRN Administration ORAL PAIN - Exam General Appearance: awake alert General - other findings: pale Eye: PERRL, anicteric sclera ENT: normocephalic atraumatic, no oropharyngeal lesions Neck: supple, symmetric, no JVD, no thyromegaly Heart: RRR, no murmur, no gallops, no rubs, normal peripheral pulses Respiratory: CTAB, no wheezes, no rales, no ronchi Gastrointestinal: soft, non-tender, non-distended, normal bowel sounds, no palpable masses Extremities: no cyanosis, no clubbing, no edema Skin: normal turgor, no lesions Neurological: cranial nerve grossly intact, no new deficit Musculoskeletal: normal tone, normal strength Psychiatric: normal affect, A&O x 3 Hosp A/P (1) Septic shock Code(s): A41.9 - SEPSIS, UNSPECIFIED ORGANISM; R65.21 - SEVERE SEPSIS WITH SEPTIC SHOCK Status: Acute Plan: Improved, continue Cefepime IV and IVF's (2) E coli bacteremia Code(s): R78.81 - BACTEREMIA Status: Acute Plan: Continue Cefepime IV (3) GI bleed Code(s): K92.2 - GASTROINTESTINAL HEMORRHAGE, UNSPECIFIED Status: Acute Plan: s/p 2u PRBC's, continue PPI, serial H/H (4) Gastric ulcer Code(s): K25.9 - GASTRIC ULCER, UNSP ACUTE OR CHRONIC, W/O HEMOR OR PERF Status: Acute Plan: s/p Epinephrine/Cauterization, continue PPI, serial H/H (5) Acute blood loss anemia Code(s): D62 - ACUTE POSTHEMORRHAGIC ANEMIA Status: Acute Plan: Repeat H/H today at noon, CBC in am (6) LEIGH ANN (acute kidney injury) Code(s): N17.9 - ACUTE KIDNEY FAILURE, UNSPECIFIED Status: Acute Plan: Resolving - Plan continue antibiotics, PT/OT, social service director, out of bed/ambulate, DVT proph w/ SCDs Stable currently Cefepime 1gm IV BID Continue IVF's Continue Protonix 40mg IV BID Restoril 15mg HS for insomnia Lab: H/H today at noon AM lab: CBC
--- NOTE | 2019-03-01 11:31 | PRG ---
DATE OF SERVICE: 03/01/2019 SUBJECTIVE: Ms. Bejarano has no complaints. Her hemodynamics have been stable. She has had no fever. She denies shortness of breath. She was a heavy smoker, leading up to this admission. OBJECTIVE: VITAL SIGNS: She is afebrile. Heart rate 83, respiratory rate 18, oximetry 98% on 2 L, and blood pressure 110/82. LUNGS: Clear. HEART: Regular rhythm. ABDOMEN: Soft. LABORATORY DATA: Hemoglobin 7.8 today, it was 8.1 yesterday. Chloride is up to 116 from 110. She is still on half-normal saline. PLAN: We will switch her to D5W. Hopefully, this lead to correction of her mild hyperchloremia. We will continue to monitor in the hospital. Overall, she appears to be stable at this time. Job ID: [id number]
[2019-03-01] MEDS: Dextrose 5% in Water 1,000 ML IV SCH ×2 (11:39→20:55)
--- NOTE | 2019-03-01 11:56 | PRG ---
DATE OF SERVICE: 02/28/2019 SUBJECTIVE: Ms. Bejarano states she is feeling better. Her mouth pain has gone, it was burning yesterday. She is eating. OBJECTIVE: VITAL SIGNS: Temperature is 98, pulse 79, blood pressure 121/75. ABDOMEN: Soft and nontender. There is no rebound. There is no guarding. LABORATORY DATA: White count is 8, hemoglobin 7.8, and platelet count 399. BUN and creatinine are 35 and 0.9 and sodium 142. TSH 0.8. ASSESSMENT: 1. Gastrointestinal hemorrhage from large gastric ulcers, likely nonsteroidal anti-inflammatory drugs related. Biopsies pending. No active bleeding now. 2. Urinary tract infection. 3. Hemorrhagic shock on presentation. 4. Acute renal injury secondary to hemorrhagic shock, slowly improving. RECOMMENDATIONS: Continue PPI, can switch to oral. Await biopsies. Advance diet as tolerated. Job ID: [id number]
[2019-03-01 14:56] LABS: Platelet Count 493 thou/uL (130-400)
[2019-03-02 05:34] LABS: #Lymphocytes 1.1 thou/uL (1.20-3.40); #Monocytes 0.4 thou/uL (0.11-0.59); %Basophils 0.1 % (0.0-1.0); %Eosinophils 0.4 % (0.0-10.0); %Lymphocytes 12.8 % (21.0-51.0); %Monocytes 5.1 % (0.0-10.0); %Neutrophils 81.6 % (42.0-75.0); Hemoglobin 8.9 g/dL (12.0-16.0); Mean Corpuscular HGB CONC 33.1 g/dL (32.0-36.0); Mean Corpuscular Hemoglobin 26.5 pg (27.0-31.0); Mean Corpuscular Volume 79.9 fL (78.0-98.0); Mean Platelet Volume 7.4 fL (7.4-10.4); Platelet Count 558 thou/uL (130-400); RBC Distribution Width 17.3 % (11.5-14.5); Red Blood Cell (RBC) Count 3.37 mill/uL (4.20-5.40); White Blood Cell (WBC) Count 8.6 thou/uL (4.8-10.8)
[2019-03-02] MEDS: Nicotine 14 MG PATCH TD SCH (06:17)
[2019-03-02] MEDS: Cefepime 1 GM in Sodium Chloride 0.9% 100 ML IVPB SCH ×2 (08:48→21:10)
[2019-03-02] MEDS: Dextrose 5% in Water 1,000 ML IV SCH (13:30)
--- NOTE | 2019-03-02 14:55 | PDOC.HOSPP ---
- Subjective Encounter Date: 03/02/19 Encounter Time: 14:50 Subjective: f/u for septic shock from UTI and GI bleed from gastric ulceration s/p 2u PRBC' s. Feels better overall but weak and decreased appetite. - Objective Vital Signs & Weight: Vital Signs (12 hours) Temp Pulse Resp BP Pulse Ox 03/02/19 09:02 85 22 H 95 03/02/19 09:00 95 03/02/19 07:03 98.3 F 81 17 128/74 95 Weight Admit Weight 151 lb 7.321 oz Weight 151 lb 7.321 oz Most Recent Monitor Data Heart Rate from ECG 78 NIBP 110/82 NIBP BP-Mean 91 Respiration from ECG 14 SpO2 88 I&O: 03/01/19 03/02/19 03/03/19 06:59 06:59 06:59 Intake Total 1868 1165 Output Total 1225 Balance 643 1165 Result Diagrams: 03/02/19 04:56 02/27/19 03:30 Additional Labs: Microbiology 02/27/19 12:10 Stool C. difficile GDH Antigen & Toxins - Final 02/26/19 04:40 Urine anderson catheter Urine Culture - Final Escherichia coli 02/26/19 01:00 Stool - Pending Stool Occult Blood (JOE) - Final 02/26/19 00:35 Venous blood - Neck Blood Culture - Final Escherichia coli 02/26/19 00:35 Venous blood - Neck Blood Culture - Final Escherichia coli 02/26/19 01:20 Urine Straight Catheter Urine Culture - Preliminary Escherichia coli Gram Negative Miguel A#2 Laboratory Tests 02/26/19 02/26/19 02/26/19 09:44 12:19 22:01 WBC Hgb 9.3 L 8.6 L Neutrophils % (Manual) Band Neuts % (Manual) BUN 68 H Creatinine 1.28 H 02/27/19 02/27/19 02/27/19 03:30 06:05 13:45 WBC Hgb 8.4 L 8.5 L 8.5 L Neutrophils % (Manual) Band Neuts % (Manual) 25 H BUN Creatinine 02/28/19 03/01/19 03/01/19 03:35 04:05 14:30 WBC 13.6 H 8.6 Hgb 8.1 L 7.8 L 9.0 L Neutrophils % (Manual) 76 H 79 H Band Neuts % (Manual) 18 H 6 BUN Creatinine Hospitalist ROS - Medication Medications: Active Medications Generic Name Dose Route Start Last Admin Trade Name Freq PRN Reason Stop Dose Admin Albuterol/Ipratropium 3 ml 02/28/19 01:55 03/02/19 09:02 Duoneb NEB 3 ml Q6H PRN Administration SOB/WHEEZE Cefepime HCl 1 gm/ Sodium 100 mls @ 200 mls/hr 02/28/19 21:00 03/02/19 08:48 [address]ide IVPB [address] Administration Dextrose/Water 1,000 mls @ 75 mls/hr 03/01/19 11:00 03/02/19 13:30 D5w IV Not Given .[id number] LANE Melatonin 3 mg 02/28/19 19:41 02/28/19 20:08 Melatonin PO 3 mg HS PRN Administration Insomnia Nicotine 14 mg 02/26/19 06:15 03/02/19 06:17 Nicoderm Patch TD [address] Administration Ondansetron HCl 4 mg 02/26/19 06:09 02/28/19 01:35 Zofran IVP 4 mg Q6H PRN Administration Nausea/Vomiting Pantoprazole Sodium 40 mg 03/01/19 21:00 03/02/19 08:51 Protonix PO [address] Administration Sertraline HCl 50 mg 03/01/19 09:00 03/02/19 08:51 Zoloft PO [address] Administration Throat Lozenges 1 kaylee 02/28/19 11:37 02/28/19 12:16 Cepastat Lozenges PO 1 kaylee PRN PRN Administration ORAL PAIN - Exam General Appearance: awake alert General - other findings: pale Eye: PERRL, anicteric sclera ENT: normocephalic atraumatic, no oropharyngeal lesions Neck: supple, symmetric, no JVD, no thyromegaly Heart: RRR, no gallops, no rubs, normal peripheral pulses Respiratory: tachypneic Respiratory - other findings: few exp wheezes, diminished in bases Gastrointestinal: soft, non-tender, non-distended, normal bowel sounds, no palpable masses Extremities: no cyanosis, no clubbing, no edema Skin: normal turgor, no lesions Neurological: cranial nerve grossly intact, no new deficit Musculoskeletal: normal tone, generalized weakness Psychiatric: A&O x 3, flat affect Hosp A/P (1) Septic shock Code(s): A41.9 - SEPSIS, UNSPECIFIED ORGANISM; R65.21 - SEVERE SEPSIS WITH SEPTIC SHOCK Status: Acute Plan: Resolved, continue Cefepime another 24h and monitor, BP stable (2) E coli bacteremia Code(s): R78.81 - BACTEREMIA Status: Acute Plan: Continue Cefepime IV another 24h (3) GI bleed Code(s): K92.2 - GASTROINTESTINAL HEMORRHAGE, UNSPECIFIED Status: Acute Plan: s/p 2u PRBC's, serial H/H, Protonix 40mg BID (4) Gastric ulcer Code(s): K25.9 - GASTRIC ULCER, UNSP ACUTE OR CHRONIC, W/O HEMOR OR PERF Status: Acute Plan: s/p epinephrine/cauterization, PPI, avoid NSAIDs (5) Acute blood loss anemia Code(s): D62 - ACUTE POSTHEMORRHAGIC ANEMIA Status: Acute (6) LEIGH ANN (acute kidney injury) Code(s): N17.9 - ACUTE KIDNEY FAILURE, UNSPECIFIED Status: Acute Plan: Resolving, avoid nephrotoxic meds and limit contrast exposure - Plan continue antibiotics, psychiatric social worker, respiratory therapy, out of bed/ambulate , DVT proph w/SCDs Stable currently Cefepime 1gm IV BID Saline lock IVF's Continue Protonix 40mg IV BID and convert to po in am Restoril 15mg HS for insomnia AM lab: BMP, CBC Likely home in 24h
[2019-03-03] MEDS: Nicotine 14 MG PATCH TD SCH (06:04)
[2019-03-03 06:26] LABS: Band 2 % (5-11); Hemoglobin 8.8 g/dL (12.0-16.0); Lymphocytes 18 % (21-51); MDiff Complete? YES; Mean Corpuscular HGB CONC 33.6 g/dL (32.0-36.0); Mean Corpuscular Hemoglobin 26.8 pg (27.0-31.0); Mean Corpuscular Volume 79.8 fL (78.0-98.0); Mean Platelet Volume 6.8 fL (7.4-10.4); Monocytes 6 % (0-10); Neutrophil 74 % (42-75); Platelet Count 639 thou/uL (130-400); Platelet Morphology Comment Appears Increased; RBC Distribution Width 16.9 % (11.5-14.5); Red Blood Cell (RBC) Count 3.29 mill/uL (4.20-5.40); White Blood Cell (WBC) Count 8.3 thou/uL (4.8-10.8)
[2019-03-03 06:34] LABS: Anion Gap 9 mmol/L (10-20); BUN (Urea Nitrogen) 6 mg/dL (9.8-20.1); Calc. Creatinine Clearance 103 mL/min (70-130); Calcium 7.7 mg/dL (7.8-10.44); Carbon Dioxide 33 mmol/L (23-31); Chloride 99 mmol/L (98-107); Estimated GFR-MDRD Greater than 90; Glucose 91 mg/dL (80-115); Sodium 138 mmol/L (136-145)
[2019-03-03 06:43] LABS: Potassium 2.6 mmol/L (3.5-5.1)
[2019-03-03] MEDS ORDERED: Potassium Chloride 20 MEQ TAB PO SCH ×2 (07:00→13:00)
[2019-03-03] MEDS: Cefepime 1 GM in Sodium Chloride 0.9% 100 ML IVPB SCH (08:17)
--- NOTE | 2019-03-03 12:52 | PDOC.HOSPP ---
- Subjective Encounter Date: 03/03/19 Encounter Time: 12:35 Subjective: f/u for sepsis due to E. coli with ESBL on Cefepime initially. Feels weak but ate a little more of her diet this am. Sat in chair earlier but fatigues easily. - Objective Vital Signs & Weight: Vital Signs (12 hours) Temp Pulse Resp BP Pulse Ox 03/03/19 08:37 79 20 96 03/03/19 08:30 96 03/03/19 07:07 98.5 F 79 17 134/78 96 03/03/19 06:06 98.5 F 03/03/19 04:00 99.1 F 76 20 114/72 97 Weight Admit Weight 151 lb 7.321 oz Weight 151 lb 7.321 oz Most Recent Monitor Data Heart Rate from ECG 78 NIBP 110/82 NIBP BP-Mean 91 Respiration from ECG 14 SpO2 88 I&O: 03/02/19 03/03/19 03/04/19 06:59 06:59 06:59 Intake Total 1165 805 300 Balance 1165 805 300 Result Diagrams: 03/03/19 05:36 03/03/19 05:36 Additional Labs: Microbiology 02/27/19 12:10 Stool C. difficile GDH Antigen & Toxins - Final 02/26/19 04:40 Urine anderson catheter Urine Culture - Final Escherichia coli 02/26/19 01:00 Stool - Pending Stool Occult Blood (JOE) - Final 02/26/19 00:35 Venous blood - Neck Blood Culture - Final Escherichia coli 02/26/19 00:35 Venous blood - Neck Blood Culture - Final Escherichia coli 02/26/19 01:20 Urine Straight Catheter Urine Culture - Preliminary Escherichia coli Gram Negative Miguel A#2 Laboratory Tests 02/26/19 02/26/19 02/26/19 09:44 12:19 22:01 WBC Hgb 9.3 L 8.6 L Plt Count Neutrophils % (Manual) Band Neuts % (Manual) BUN 68 H Creatinine 1.28 H HIV 1&2 Antigen & Ab 02/27/19 02/27/19 02/27/19 03:30 03:30 06:05 WBC Hgb 8.4 L 8.5 L Plt Count Neutrophils % (Manual) Band Neuts % (Manual) 25 H BUN Creatinine HIV 1&2 Antigen & Ab Non-Reactive 12/02/28/19 03/01/19 13:45 03:35 04:05 WBC 13.6 H 8.6 Hgb 8.5 L 8.1 L 7.8 L Plt Count 399 Neutrophils % (Manual) 76 H 79 H Band Neuts % (Manual) 18 H 6 BUN Creatinine HIV 1&2 Antigen & Ab 03/01/19 03/02/19 14:30 04:56 WBC Hgb 9.0 L Plt Count 493 H 558 H Neutrophils % (Manual) Band Neuts % (Manual) BUN Creatinine HIV 1&2 Antigen & Ab Hospitalist ROS - Medication Medications: Active Medications Generic Name Dose Route Start Last Admin Trade Name Freq PRN Reason Stop Dose Admin Albuterol/Ipratropium 3 ml 02/28/19 01:55 03/03/19 08:37 Duoneb NEB 3 ml Q6H PRN Administration SOB/WHEEZE Melatonin 3 mg 02/28/19 19:41 02/28/19 20:08 Melatonin PO 3 mg HS PRN Administration Insomnia Nicotine 14 mg 02/26/19 06:15 03/03/19 06:04 Nicoderm Patch TD [address] Administration Ondansetron HCl 4 mg 02/26/19 06:09 02/28/19 01:35 Zofran IVP 4 mg Q6H PRN Administration Nausea/Vomiting Pantoprazole Sodium 40 mg 03/01/19 21:00 03/03/19 08:17 Protonix PO [address] Administration Sertraline HCl 50 mg 03/01/19 09:00 03/03/19 08:17 Zoloft PO [address] Administration Sodium Chloride 10 ml 02/26/19 16:34 03/03/19 08:20 Flush - Normal Saline IVF 10 ml PRN PRN Administration Saline Flush Throat Lozenges 1 kaylee 02/28/19 11:37 02/28/19 12:16 Cepastat Lozenges PO 1 kaylee PRN PRN Administration ORAL PAIN - Exam General Appearance: awake alert, ill appearing Eye: PERRL, anicteric sclera ENT: normocephalic atraumatic, no oropharyngeal lesions Neck: supple, symmetric, no JVD, no thyromegaly Heart: RRR, no murmur, no gallops, no rubs, normal peripheral pulses Respiratory: no wheezes, no rales, no ronchi Respiratory - other findings: diminished in bases Gastrointestinal: soft, non-tender, non-distended, normal bowel sounds Extremities: no cyanosis, no clubbing, no edema Skin: normal turgor, no lesions Neurological: cranial nerve grossly intact, no new deficit Musculoskeletal: normal tone, generalized weakness Psychiatric: normal affect, A&O x 3 Hosp A/P (1) Septic shock Code(s): A41.9 - SEPSIS, UNSPECIFIED ORGANISM; R65.21 - SEVERE SEPSIS WITH SEPTIC SHOCK Status: Acute Plan: BP stabilized, E. coli with ESBL on prior Cefepime, convert to Zosyn 3.375gm IV q6h, consult ID for recommendations (2) E coli bacteremia Code(s): R78.81 - BACTEREMIA Status: Acute Plan: Secondary to UTI source, see #1 (3) GI bleed Code(s): K92.2 - GASTROINTESTINAL HEMORRHAGE, UNSPECIFIED Status: Acute Plan: Secondary to gastric ulcers, continue PPI, serial H/H (4) Gastric ulcer Code(s): K25.9 - GASTRIC ULCER, UNSP ACUTE OR CHRONIC, W/O HEMOR OR PERF Status: Acute Plan: s/p epinephrine and cauterization, continue PPI (5) Acute blood loss anemia Code(s): D62 - ACUTE POSTHEMORRHAGIC ANEMIA Status: Acute Plan: s/p 2u PRBC's , stable currently (6) LEIGH ANN (acute kidney injury) Code(s): N17.9 - ACUTE KIDNEY FAILURE, UNSPECIFIED Status: Acute Plan: Resolved (7) Hypokalemia Code(s): E87.6 - HYPOKALEMIA Status: Acute Plan: Secondary to poor po intake and GI loss, KCL supplementation, serial monitoring - Plan plan discussed w/ family, continue antibiotics, PT/OT, social service technician, out of bed/ambulate, DVT proph w/SCDs Stable currently Start Zosyn 3.375gm IV q6h D/C Cefepime Continue D5NS + KCL @ 75ml/h Continue Protonix 40mg IV BID and convert to po in am Restoril 15mg HS for insomnia AM lab: BMP, CBC Consult ID Likely home in 24h
[2019-03-03] MEDS: MEROPENEM 1 GM/50 ML 1 GM in Premix Bag 1 BAG IVPB SCH ×2 (14:31→21:49)
[2019-03-03] MEDS: D5 NS w/ 40 mEq KCl 1,000 ML IV SCH (14:32)
--- NOTE | 2019-03-03 15:28 | CT ---
CT ABDOMEN AND PELVIS WITHOUT CONTRAST: HISTORY: UTI with hematuria. History of cholecystectomy, appendectomy and hysterectomy. COMPARISON: 08/06/2018 FINDINGS: ABDOMEN: There is a moderately large right pleural effusion with right lower lobe atelectasis. There is a smaller left pleural effusion present. The liver and spleen appear unremarkable. The pancreas region shows no mass on this noncontrast study . The gallbladder has been removed. The right and left adrenal glands are normal. The right kidney is enlarged. There is some perinephric fat stranding and an area of decreased attenuation has developed along the medial aspect of the lowe r pole, not seen on the previous examination. The changes would be suggestive of pyelonephritis and t he possibility of a developing abscess. The left kidney is within normal limits in size. There is no significant periaortic or mesenteric adenopathy. PELVIS: There is no evidence of adenopathy, mass or free fluid. IMPRESSION: 1. Moderate bilateral pleural effusions, right larger than left, with atelectatic lung changes. 2. Enlarged right kidney with perinephric fat stranding. No obstruction is seen. These changes would suggest pyelonephritis. There is an area of decreased attenuation which has developed along the media l aspect of the lower pole of the kidney, which is not seen on the prior examination. It may just rep resent some regional hypoperfusion but could indicate some type of developing abscess. If the patient is able, a contrast CT may be helpful in further assessment. POS: OFF
--- NOTE | 2019-03-03 15:30 | RAD ---
CHEST ONE VIEW: HISTORY: Decreased breath sounds on the right. COMPARISON: CT done earlier. FINDINGS: Heart size is borderline with a pacemaker. There is right lower lobe pleural and parenchymal lung erwin nge, consistent with effusion with atelectasis versus infiltrate. Some slight increased density is al so seen in the left base. IMPRESSION: Bilateral pleural effusions, right larger than left, slightly more confluent parenchymal changes in t he right base. POS: OFF
[2019-03-03] MEDS: Potassium Chloride 20 MEQ TAB PO SCH (17:01)
[2019-03-03] MEDS ORDERED: Piperacillin/Tazobactam 3.375 GM in Sodium Chloride 0.9% 100 ML IVPB SCH (18:00)
[2019-03-03] MEDS: Nystatin Cream 15 GM TUBE TOP SCH (20:10)
[2019-03-04] MEDS: HYDROcodone/Acetaminophen 5/325 mg Tablet PO PRN ×2 (01:19→20:32)
[2019-03-04] MEDS: MEROPENEM 1 GM/50 ML 1 GM in Premix Bag 1 BAG IVPB SCH ×3 (05:23→21:46)
[2019-03-04] MEDS: Nicotine 14 MG PATCH TD SCH (05:23)
[2019-03-04] MEDS: D5 NS w/ 40 mEq KCl 1,000 ML IV SCH (05:24)
[2019-03-04 05:40] LABS: Anion Gap 12 mmol/L (10-20); BUN (Urea Nitrogen) 6 mg/dL (9.8-20.1); Calc. Creatinine Clearance 93 mL/min (70-130); Calcium 7.6 mg/dL (7.8-10.44); Carbon Dioxide 25 mmol/L (23-31); Chloride 107 mmol/L (98-107); Estimated GFR-MDRD Greater than 90; Glucose 108 mg/dL (80-115); Potassium 4.3 mmol/L (3.5-5.1); Sodium 140 mmol/L (136-145)
[2019-03-04 05:44] LABS: Band 12 % (5-11); Hemoglobin 8.6 g/dL (12.0-16.0); Lymphocytes 15 % (21-51); MDiff Complete? YES; Mean Corpuscular HGB CONC 32.9 g/dL (32.0-36.0); Mean Corpuscular Hemoglobin 26.6 pg (27.0-31.0); Mean Corpuscular Volume 80.7 fL (78.0-98.0); Mean Platelet Volume 6.6 fL (7.4-10.4); Monocytes 4 % (0-10); Neutrophil 69 % (42-75); Platelet Count 690 thou/uL (130-400); RBC Distribution Width 17.1 % (11.5-14.5); Red Blood Cell (RBC) Count 3.22 mill/uL (4.20-5.40); White Blood Cell (WBC) Count 7.9 thou/uL (4.8-10.8)
[2019-03-04] MEDS: Potassium Chloride 20 MEQ TAB PO SCH (08:22)
[2019-03-04] MEDS: Nystatin Cream 15 GM TUBE TOP SCH ×2 (08:30→20:31)
[2019-03-04] MEDS: Ondansetron PF 4 MG/2 ML Vial IVP PRN (09:36)
--- NOTE | 2019-03-04 11:13 | CON ---
DATE OF CONSULTATION: 03/03/2019 REASON FOR CONSULTATION: Bacteremia. HISTORY OF PRESENT ILLNESS: A 69-year-old patient with history of chronic smoking, osteoarthritis, mostly in the hips, for which she takes NSAIDs on a daily basis , who also has had a pacemaker placement for sick sinus syndrome and has had a 1-week history of weakness prior to admission and was seen in the local urgent care, where she was found to be hypotensive, was transferred to the emergency room. At that time, it was clear that she was having melena for a few days. Initial findings included pulse 63, and O2 saturation 95, and temperature 96.4. The initial findings included dry oral mucosa. Some scattered rhonchi noted, cool extremities, and some garbled speech. White cell count 19.8, hemoglobin 12, platelets 267, and 30% bands and a sodium of 137 and creatinine of 1.28. Troponin less than 0.01. Urinalysis is greater than 50 wbc's. On microbiology, we have on arrival two sets of blood cultures with E coli, which had an ESBL phenotype. The patient had EGD, which showed two ulcers, one in the gastric area and one in the duodenum, and those were managed with conservative interventions. She is currently awake and alert. Still does not feel back to normal. She is receiving Zosyn. Denies headaches. No visual symptoms. Mild sore throat. No neck pain. No dyspnea. No chest pain. No abdominal pain. Had some dysuria earlier. Had a catheter previously and a few days before that has been removed and chronic joint symptoms mostly in the hips and shoulders related to osteoarthritis. MEDICAL HISTORY: Hypertension, chronic smoking, sick sinus syndrome with pacemaker, hyperlipidemia, and hip osteoarthritis. ALLERGIES: NONE. MEDICATIONS: At the moment in addition to Zosyn, she is on 1. Tylenol. 2. [place]. 3. DuoNeb. 4. Melatonin. 5. NicoDerm. 6. Mycostatin. 7. Zofran. 8. Protonix. FAMILY HISTORY: Noncontributory. She lives in the area by herself. PHYSICAL EXAMINATION: VITAL SIGNS: T-max 100.3. She has been afebrile since. Blood pressure 130/70, pulse 79, respirations 17, O2 saturation 96 on 2 L nasal cannula. GENERAL: Appears chronically ill and acutely ill, disheveled, oriented, follows commands. SKIN: Mild areas of breakdown in the presacral region, resembles Sara. Has a peripheral IV access. No Pal[place] catheter. HEENT: Ocular movements conjugate. Some periorbital edema. Oral cavity with numerous teeth with fairly decent shape. Somewhat dry oral mucosa. LUNGS: With some scattered faint expiratory wheezing. No crackles noted. There are diminished breath sounds in the right base. HEART: S1 and S2. Regular rate. ABDOMEN: Soft with mild distension, but not tenderness. No ascites. No bladder distention. EXTREMITIES: No joint inflammatory activity noted. 1+ edema in lower extremities. Pulses 1+ in dorsalis pedis. Moves extremities equally. NEUROLOGIC: She is awake, oriented, follows commands. Recollection is good. LABORATORY DATA: White cell count is down to 8.3, hemoglobin 8.8, platelets wnl WBC with 74% neutrophils. Sodium 137, creatinine 1.28, now is down to 0.91. TSH 0.87. Microbiology as noted above. IMAGING DATA: There is a chest x-ray from February 26 with no findings of significance. This was a chest x-ray to check placement of a central line. She does have a central line in the right IJ position. ASSESSMENT: Chronic smoking, likely chronic obstructive pulmonary disease, sick sinus syndrome with pacemaker, invasive urinary tract infection with cystitis and probably pyelonephritis as well and bacteremia, gastrointestinal bleed with gastric and duodenal ulcers related to NSAID use for management of hip osteoarthritis. DISCUSSION: The organism is ESBL E. coli, so she will be transitioned to meropenem, which has better outcomes compared with Zosyn. Check a CT stone protocol, and once we have the results, we will determine duration of therapy. The likelihood of colonization of the pacer lead is low for this organism. No other sites of involvement are apparent at this time. Recheck chest x-ray in view of the diminished breath sounds in the right base. Job ID: [id number] [facility]
--- NOTE | 2019-03-04 12:21 | PDOC.HOSPP ---
- Subjective Encounter Date: 03/04/19 Encounter Time: 12:10 Subjective: f/u for sepsis with E. coli ESBL from urinary source and likely pyelonephritis. Received Cefepime initially then Zosyn now on Meropenem. Feels fatigued but overall better today. - Objective Vital Signs & Weight: Vital Signs (12 hours) Temp Pulse Resp BP BP Pulse Ox 03/04/19 08:00 96 03/04/19 07:39 96.7 F L 76 16 100/67 96 03/04/19 06:16 84 18 97 03/04/19 04:06 97.2 F L 75 18 100/62 98 Weight Admit Weight 151 lb 7.321 oz Weight 151 lb 7.321 oz Most Recent Monitor Data Heart Rate from ECG 78 NIBP 110/82 NIBP BP-Mean 91 Respiration from ECG 14 SpO2 88 I&O: 03/03/19 03/04/19 03/05/19 06:59 06:59 06:59 Intake Total 805 2585 120 Balance 805 2585 120 Result Diagrams: 03/04/19 04:33 03/04/19 04:33 Additional Labs: Microbiology 02/27/19 12:10 Stool C. difficile GDH Antigen & Toxins - Final 02/26/19 04:40 Urine anderson catheter Urine Culture - Final Escherichia coli 02/26/19 01:00 Stool - Pending Stool Occult Blood (JOE) - Final 02/26/19 00:35 Venous blood - Neck Blood Culture - Final Escherichia coli 02/26/19 00:35 Venous blood - Neck Blood Culture - Final Escherichia coli 02/26/19 01:20 Urine Straight Catheter Urine Culture - Preliminary Escherichia coli Gram Negative Miguel A#2 Laboratory Tests 02/26/19 02/26/19 02/26/19 09:44 12: 22:01 WBC Hgb 9.3 L 8.6 L Plt Count Neutrophils % (Manual) Band Neuts % (Manual) BUN 68 H Creatinine 1.28 H HIV 1&2 Antigen & Ab 02/27/19 02/27/19 02/27/19 03:30 03:30 06:05 WBC Hgb 8.4 L 8.5 L Plt Count Neutrophils % (Manual) Band Neuts % (Manual) 25 H BUN Creatinine HIV 1&2 Antigen & Ab Non-Reactive 02/27/19 02/28/19 03/01/19 13:45 03:35 04:05 WBC 13.6 H 8.6 Hgb 8.5 L 8.1 L 7.8 L Plt Count 399 Neutrophils % (Manual) 76 H 79 H Band Neuts % (Manual) 18 H 6 BUN Creatinine HIV 1&2 Antigen & Ab 03/01/19 03/02/19 14:30 04:56 WBC Hgb 9.0 L Plt Count 493 H 558 H Neutrophils % (Manual) Band Neuts % (Manual) BUN Creatinine HIV 1&2 Antigen & Ab Radiology Reviewed by me: Yes (CT abd/pel - R perinephric fat stranding, R pleural effusion) Hospitalist ROS - Medication Medications: Active Medications Generic Name Dose Route Start Last Admin Trade Name Freq PRN Reason Stop Dose Admin Hydrocodone Bitart/Acetaminophen 1 tab 02/26/19 06:09 03/04/19 01:19 [place] 5/325 PO 1 tab Q4H PRN Administration Moderate Pain (4-6) Albuterol/Ipratropium 3 ml 02/28/19 01:55 03/04/19 06:16 Duoneb NEB 3 ml Q6H PRN Administration SOB/WHEEZE Potassium Chloride/Dextrose/Sod Cl 1,000 mls @ 75 mls/hr 03/03/19 13:00 03/04 05:24 D5 Ns W/ 40 Meq Kcl IV 1,[id number] Administration Meropenem 1 gm/ Device 50 mls @ 100 mls/hr 03/03/19 14:00 03/04/19 05:[address] Administration Melatonin 3 mg 02/28/19 19:41 02/28/19 20:08 Melatonin PO 3 mg HS PRN Administration Insomnia Nicotine 14 mg 02/26/19 06:15 03/04/19 05:23 Nicoderm Patch TD [address] Administration Nystatin 0 gm 03/03/19 21:00 03/03/19 20:10 Mycostatin Cream TOP [address] Administration Ondansetron HCl 4 mg 02/26/19 06:09 03/04/19 09:36 Zofran IVP 4 mg Q6H PRN Administration Nausea/Vomiting Pantoprazole Sodium 40 mg 03/01/19 21:00 03/04/19 08:23 Protonix PO [address] Administration Sertraline HCl 50 mg 03/01/19 09:00 03/04/19 08:23 Zoloft PO [address] Administration Sodium Chloride 10 ml 02/26/19 16:34 03/03/19 08:20 Flush - Normal Saline IVF 10 ml PRN PRN Administration Saline Flush Throat Lozenges 1 kaylee 02/28/19 11:37 02/28/19 12:16 Cepastat Lozenges PO 1 kaylee PRN PRN Administration ORAL PAIN - Exam General Appearance: NAD, awake alert Eye: PERRL, anicteric sclera ENT: normocephalic atraumatic, no oropharyngeal lesions Neck: supple, symmetric, no JVD, no thyromegaly Heart: RRR, no gallops, no rubs, normal peripheral pulses Respiratory: no rales Respiratory - other findings: diminished in bases R>L, occasional wheeze Gastrointestinal: soft, non-tender, non-distended, normal bowel sounds, no palpable masses Extremities: no cyanosis, no clubbing, no edema Skin: normal turgor, no lesions Neurological: cranial nerve grossly intact, no new deficit Musculoskeletal: normal tone, generalized weakness Psychiatric: normal affect, A&O x 3 Hosp A/P (1) Septic shock Code(s): A41.9 - SEPSIS, UNSPECIFIED ORGANISM; R65.21 - SEVERE SEPSIS WITH SEPTIC SHOCK Status: Acute Plan: Secondary to E. coli from urinary source and likely R pyelonephritis, continue Meropenem, appreciate ID assistance (2) E coli bacteremia Code(s): R78.81 - BACTEREMIA Status: Acute Plan: See above (3) GI bleed Code(s): K92.2 - GASTROINTESTINAL HEMORRHAGE, UNSPECIFIED Status: Acute Plan: Stable, secondary to gastric ulcers s/p cauterization/Epinephrine (4) Gastric ulcer Code(s): K25.9 - GASTRIC ULCER, UNSP ACUTE OR CHRONIC, W/O HEMOR OR PERF Status: Acute (5) Acute blood loss anemia Code(s): D62 - ACUTE POSTHEMORRHAGIC ANEMIA Status: Acute Plan: s/p 2u PRBC's, stable currently (6) LEIGH ANN (acute kidney injury) Code(s): N17.9 - ACUTE KIDNEY FAILURE, UNSPECIFIED Status: Acute Plan: Resolved (7) Hypokalemia Code(s): E87.6 - HYPOKALEMIA Status: Acute Plan: Resolved - Plan continue antibiotics, PT/OT, social work manager, respiratory therapy, out of bed/ ambulate, DVT proph w/SCDs Stable currently Continue Meropenem 1gm IV q8h D/C Cefepime Continue D5NS + KCL @ 75ml/h D/C KCL Restoril 15mg HS for insomnia AM lab: BMP, CBC ID consult appreciated
--- NOTE | 2019-03-04 12:27 | PRG ---
DATE OF SERVICE: 03/02/2019 SUBJECTIVE: Ms. Bejarano has no signs of bleeding. She is not really getting out of bed. She is not really eating much. She states she does not have an appetite. OBJECTIVE: VITAL SIGNS: Temperature is 98.3, pulse 81, blood pressure 128/74. GENERAL: She is deconditioned, looks to have a flattened affect. She is in no distress. LUNGS: Clear. HEART: Regular rate and rhythm without clicks, rubs, or murmurs. ABDOMEN: Soft and nontender. LABORATORY DATA: Hemoglobin is 8.9, white count 8.6, and platelet count 558. Sodium 142, potassium 3.6, BUN and creatinine . Troponins were negative on admission. TSH 0.87. Pathology from gastric biopsies are pending. ASSESSMENT: 1. Presentation with sepsis. She did have a urinary tract infection and has a positive culture for Escherichia coli. Clostridium difficile was negative. 2. Thrombocytosis, could be reactive from her anemia or from infection. 3. Hemorrhagic shock/sepsis, resolved not getting out of bed or eating much, but she is much better than she was on even a few days ago. 4. Large gastric ulcer, likely NSAID related, nonbleeding, multiple small erosions in gastric antrum, duodenal ulcer in apex, nonbleeding. RECOMMENDATIONS: 1. She has been switched over to Protonix p.o. b.i.d. We would check her electrolytes tomorrow. I told her she can get out of bed and do some walking and she can eat and she will be able to go home in a day or so. I have talked with Dr. Polanco about this and he is going to try to get her out tomorrow. 2. I will be out next two days. Dr. Landers will be available if any input is needed from a GI service. Otherwise, I will follow up on her biopsies when I return. Job ID: [id number]
[2019-03-04] MEDS: D5 0.9% NS w/ 20 mEq KCl 1,000 ML IV SCH (15:01)
[2019-03-05] MEDS: D5 0.9% NS w/ 20 mEq KCl 1,000 ML IV SCH ×2 (05:15→17:55)
[2019-03-05] MEDS: Nicotine 14 MG PATCH TD SCH (05:15)
[2019-03-05] MEDS: MEROPENEM 1 GM/50 ML 1 GM in Premix Bag 1 BAG IVPB SCH ×3 (05:15→23:00)
[2019-03-05 06:52] LABS: Hemoglobin 8.8 g/dL (12.0-16.0); Platelet Count 602 thou/uL (130-400)
[2019-03-05] MEDS: Nystatin Cream 15 GM TUBE TOP SCH ×2 (08:11→21:00)
[2019-03-05] MEDS: HYDROcodone/Acetaminophen 5/325 mg Tablet PO PRN ×2 (11:26→19:57)
--- NOTE | 2019-03-05 12:36 | PDOC.HOSPP ---
- Subjective Encounter Date: 03/05/19 Encounter Time: 10:35 Subjective: +hip pain.. - Objective Vital Signs & Weight: Vital Signs (12 hours) Temp Pulse Resp BP Pulse Ox 03/05/19 11:22 99.4 F 98 20 127/79 95 03/05/19 08:06 99 03/05/19 07:34 98.5 F 90 16 120/69 99 03/05/19 07:23 78 16 93 L 03/05/19 02:46 96 03/05/19 02:45 81 16 96 Weight Admit Weight 151 lb 7.321 oz Weight 151 lb 7.321 oz Most Recent Monitor Data Heart Rate from ECG 78 NIBP 110/82 NIBP BP-Mean 91 Respiration from ECG 14 SpO2 88 I&O: 03/04/19 03/05/19 03/06/19 06:59 06:59 06:59 Intake Total 2585 2725 Balance 2585 2725 Result Diagrams: 03/05/19 05:57 03/04/19 04:33 Hospitalist ROS - Medication Medications: Active Medications Generic Name Dose Route Start Last Admin Trade Name Freq PRN Reason Stop Dose Admin Hydrocodone Bitart/Acetaminophen 1 tab 02/26/19 06:09 03/05/19 11:26 [place] 5/325 PO 1 tab Q4H PRN Administration Moderate Pain (4-6) Albuterol/Ipratropium 3 ml 02/28/19 01:55 03/05/19 07:23 Duoneb NEB 3 ml Q6H PRN Administration SOB/WHEEZE Meropenem 1 gm/ Device 50 mls @ 100 mls/hr 03/03/19 14:00 03/05/19 05:[address] Administration Potassium Chloride/Dextrose/Sod Cl 1,000 mls @ 75 mls/hr 03/04/19 13:00 03/05 05:15 D5 0.9% Ns W/ 20 Meq Kcl IV 1,[id number] Administration Melatonin 3 mg 02/28/19 19:41 02/28/19 20:08 Melatonin PO 3 mg HS PRN Administration Insomnia Nicotine 14 mg 02/26/19 06:15 03/05/19 05:15 Nicoderm Patch TD [address] Administration Nystatin 0 gm 03/03/19 21:00 03/05/19 08:11 Mycostatin Cream TOP [address] Administration Ondansetron HCl 4 mg 02/26/19 06:09 03/04/19 09:36 Zofran IVP 4 mg Q6H PRN Administration Nausea/Vomiting Pantoprazole Sodium 40 mg 03/01/19 21:00 03/05/19 08:11 Protonix PO [address] Administration Sertraline HCl 50 mg 03/01/19 09:00 03/05/19 08:10 Zoloft PO [address] Administration Sodium Chloride 10 ml 02/26/19 16:34 03/03/19 08:20 Flush - Normal Saline IVF 10 ml PRN PRN Administration Saline Flush Throat Lozenges 1 kaylee 02/28/19 11:37 02/28/19 12:16 Cepastat Lozenges PO 1 kaylee PRN PRN Administration ORAL PAIN - Exam General Appearance: NAD Neck: no JVD Heart: RRR Respiratory: CTAB Gastrointestinal: soft Extremities: no edema Neurological: no weakness Psychiatric: normal affect Hosp A/P (1) Acute blood loss anemia Code(s): D62 - ACUTE POSTHEMORRHAGIC ANEMIA Status: Acute (2) E coli bacteremia Code(s): R78.81 - BACTEREMIA Status: Acute (3) Gastric ulcer Code(s): K25.9 - GASTRIC ULCER, UNSP ACUTE OR CHRONIC, W/O HEMOR OR PERF Status: Acute (4) Septic shock Code(s): A41.9 - SEPSIS, UNSPECIFIED ORGANISM; R65.21 - SEVERE SEPSIS WITH SEPTIC SHOCK Status: Acute - Plan s/p EGD. s/p blood transfusion. hb/hct stable. Continue antibiotics. f/u with ID.
[2019-03-05] MEDS: Acetaminophen 325 MG TAB PO PRN (17:04)
[2019-03-06] MEDS: Acetaminophen 325 MG TAB PO PRN (02:58)
[2019-03-06] MEDS: MEROPENEM 1 GM/50 ML 1 GM in Premix Bag 1 BAG IVPB SCH ×3 (06:13→20:51)
[2019-03-06] MEDS: Nicotine 14 MG PATCH TD SCH (06:17)
[2019-03-06] MEDS: D5 0.9% NS w/ 20 mEq KCl 1,000 ML IV SCH ×2 (06:29→17:36)
[2019-03-06] MEDS: Nystatin Cream 15 GM TUBE TOP SCH ×2 (07:54→20:52)
--- NOTE | 2019-03-06 12:15 | PDOC.HOSPP ---
- Subjective Encounter Date: 03/06/19 Encounter Time: 10:40 Subjective: Fever last night.. - Objective Vital Signs & Weight: Vital Signs (12 hours) Temp Pulse Resp BP Pulse Ox 03/06/19 09:26 98.0 F 84 20 110/67 97 03/06/19 08:00 97 03/06/19 06:25 83 16 98 03/06/19 04:16 99.0 F 88 19 145/79 H 94 L 03/06/19 02:00 98.7 F Weight Admit Weight 151 lb 7.321 oz Weight 151 lb 7.321 oz Most Recent Monitor Data Heart Rate from ECG 78 NIBP 110/82 NIBP BP-Mean 91 Respiration from ECG 14 SpO2 88 I&O: 03/05/19 03/06/19 03/07/19 06:59 06:59 06:59 Intake Total 2725 2400 Output Total 10 Balance 2725 2390 Result Diagrams: 03/05/19 05:57 03/04/19 04:33 Hospitalist ROS - Medication Medications: Active Medications Generic Name Dose Route Start Last Admin Trade Name Freq PRN Reason Stop Dose Admin Acetaminophen 650 mg 02/26/19 06:09 03/06/19 02:58 Tylenol PO 650 mg Q4H PRN Administration Headache/Fever/Mild Pain (1-3) Hydrocodone Bitart/Acetaminophen 1 tab 02/26/19 06:09 03/05/19 19:57 [place] 5/325 PO 1 tab Q4H PRN Administration Moderate Pain (4-6) Albuterol/Ipratropium 3 ml 02/28/19 01:55 03/06/19 06:25 Duoneb NEB 3 ml Q6H PRN Administration SOB/WHEEZE Meropenem 1 gm/ Device 50 mls @ 100 mls/hr 03/03/19 14:00 03/06/19 06:[address] Administration Potassium Chloride/Dextrose/Sod Cl 1,000 mls @ 75 mls/hr 03/04/19 13:00 03/06 06:29 D5 0.9% Ns W/ 20 Meq Kcl IV 1,[id number] Administration Melatonin 3 mg 02/28/19 19:41 02/28/19 20:08 Melatonin PO 3 mg HS PRN Administration Insomnia Nicotine 14 mg 02/26/19 06:15 03/06/19 06:17 Nicoderm Patch TD [address] Administration Nystatin 0 gm 03/03/19 21:00 03/06/19 07:54 Mycostatin Cream TOP [address] Administration Ondansetron HCl 4 mg 02/26/19 06:09 03/04/19 09:36 Zofran IVP 4 mg Q6H PRN Administration Nausea/Vomiting Pantoprazole Sodium 40 mg 03/01/19 21:00 03/06/19 07:55 Protonix PO [address] Administration Sertraline HCl 50 mg 03/01/19 09:00 03/06/19 07:55 Zoloft PO [address] Administration Sodium Chloride 10 ml 02/26/19 16:34 03/03/19 08:20 Flush - Normal Saline IVF 10 ml PRN PRN Administration Saline Flush Throat Lozenges 1 kaylee 02/28/19 11:37 02/28/19 12:16 Cepastat Lozenges PO 1 kaylee PRN PRN Administration ORAL PAIN - Exam General Appearance: NAD Neck: no JVD Heart: RRR Respiratory: CTAB Gastrointestinal: soft Extremities: no edema Psychiatric: normal affect, A&O x 3 Hosp A/P (1) Acute blood loss anemia Code(s): D62 - ACUTE POSTHEMORRHAGIC ANEMIA Status: Acute (2) E coli bacteremia Code(s): R78.81 - BACTEREMIA Status: Acute (3) Gastric ulcer Code(s): K25.9 - GASTRIC ULCER, UNSP ACUTE OR CHRONIC, W/O HEMOR OR PERF Status: Acute (4) Septic shock Code(s): A41.9 - SEPSIS, UNSPECIFIED ORGANISM; R65.21 - SEVERE SEPSIS WITH SEPTIC SHOCK Status: Acute - Plan s/p EGD. s/p blood transfusion. f/u cbc. Continue antibiotics. f/u with ID.
[2019-03-06] MEDS: Ondansetron PF 4 MG/2 ML Vial IVP PRN (12:46)
[2019-03-06] MEDS: HYDROcodone/Acetaminophen 5/325 mg Tablet PO PRN (17:35)
[2019-03-07] MEDS: MEROPENEM 1 GM/50 ML 1 GM in Premix Bag 1 BAG IVPB SCH ×3 (05:55→20:25)
[2019-03-07] MEDS: D5 0.9% NS w/ 20 mEq KCl 1,000 ML IV SCH ×2 (05:57→20:31)
[2019-03-07 07:03] LABS: #Eosinphils 0.1 thou/uL (0.0-0.7); #Lymphocytes 0.9 thou/uL (1.20-3.40); #Monocytes 0.5 thou/uL (0.11-0.59); #Neutrophils 4.9 thou/uL (1.40-6.50); %Basophils 0.5 % (0.0-1.0); %Eosinophils 0.9 % (0.0-10.0); %Lymphocytes 13.9 % (21.0-51.0); %Monocytes 7.4 % (0.0-10.0); %Neutrophils 77.3 % (42.0-75.0); Hemoglobin 8.3 g/dL (12.0-16.0); Mean Corpuscular HGB CONC 32.1 g/dL (32.0-36.0); Mean Corpuscular Hemoglobin 26.5 pg (27.0-31.0); Mean Corpuscular Volume 82.6 fL (78.0-98.0); Mean Platelet Volume 6.2 fL (7.4-10.4); Platelet Count 478 thou/uL (130-400); RBC Distribution Width 16.7 % (11.5-14.5); Red Blood Cell (RBC) Count 3.12 mill/uL (4.20-5.40); White Blood Cell (WBC) Count 6.3 thou/uL (4.8-10.8)
[2019-03-07] MEDS: Nicotine 14 MG PATCH TD SCH (08:04)
[2019-03-07] MEDS: Acetaminophen 325 MG TAB PO PRN (08:04)
[2019-03-07] MEDS: Nystatin Cream 15 GM TUBE TOP SCH ×2 (08:05→20:24)
--- NOTE | 2019-03-07 10:14 | PDOC.HOSPP ---
- Subjective Encounter Date: 03/07/19 Encounter Time: 08:45 Subjective: No specific complaint.. - Objective Vital Signs & Weight: Vital Signs (12 hours) Temp Pulse Resp BP Pulse Ox 03/07/19 09:04 98.2 F 84 20 120/70 94 L 03/07/19 08:00 94 L 03/07/19 04:14 99.2 F 80 18 120/72 98 03/07/19 00:22 98.1 F 69 18 99/64 98 Weight Admit Weight 151 lb 7.321 oz Weight 151 lb 7.321 oz Most Recent Monitor Data Heart Rate from ECG 78 NIBP 110/82 NIBP BP-Mean 91 Respiration from ECG 14 SpO2 88 I&O: 03/06/19 03/07/19 03/08/19 06:59 06:59 06:59 Intake Total 2400 2100 Output Total 10 Balance 2390 2100 Result Diagrams: 03/07/19 06:47 03/04/19 04:33 Hospitalist ROS - Medication Medications: Active Medications Generic Name Dose Route Start Last Admin Trade Name Freq PRN Reason Stop Dose Admin Acetaminophen 650 mg 02/26/19 06:09 03/07/19 08:04 Tylenol PO 650 mg Q4H PRN Administration Headache/Fever/Mild Pain (1-3) Hydrocodone Bitart/Acetaminophen 1 tab 02/26/19 06:09 03/06/19 17:35 [place] 5/325 PO 1 tab Q4H PRN Administration Moderate Pain (4-6) Albuterol/Ipratropium 3 ml 02/28/19 01:55 03/06/19 13:37 Duoneb NEB 3 ml Q6H PRN Administration SOB/WHEEZE Meropenem 1 gm/ Device 50 mls @ 100 mls/hr 03/03/19 14:00 03/07/19 05:[address] Administration Potassium Chloride/Dextrose/Sod Cl 1,000 mls @ 75 mls/hr 03/04/19 13:00 03/07 05:57 D5 0.9% Ns W/ 20 Meq Kcl IV 1,[id number] Administration Melatonin 3 mg 02/28/19 19:41 02/28/19 20:08 Melatonin PO 3 mg HS PRN Administration Insomnia Nicotine 14 mg 02/26/19 06:15 03/07/19 08:04 Nicoderm Patch TD [address] Administration Nystatin 0 gm 03/03/19 21:00 03/07/19 08:05 Mycostatin Cream TOP [address] Administration Ondansetron HCl 4 mg 02/26/19 06:09 03/06/19 12:46 Zofran IVP 4 mg Q6H PRN Administration Nausea/Vomiting Pantoprazole Sodium 40 mg 03/01/19 21:00 03/07/19 08:05 Protonix PO [address] Administration Sertraline HCl 50 mg 03/01/19 09:00 03/07/19 08:04 Zoloft PO [address] Administration Sodium Chloride 10 ml 02/26/19 16:34 03/03/19 08:20 Flush - Normal Saline IVF 10 ml PRN PRN Administration Saline Flush Throat Lozenges 1 kaylee 02/28/19 11:37 02/28/19 12:16 Cepastat Lozenges PO 1 kaylee PRN PRN Administration ORAL PAIN - Exam General Appearance: NAD Neck: no JVD Heart: RRR Respiratory: CTAB Gastrointestinal: soft Extremities: no edema Neurological: no weakness Hosp A/P (1) Acute blood loss anemia Code(s): D62 - ACUTE POSTHEMORRHAGIC ANEMIA Status: Acute Plan: hb/hct stable (2) E coli bacteremia Code(s): R78.81 - BACTEREMIA Status: Acute (3) Gastric ulcer Code(s): K25.9 - GASTRIC ULCER, UNSP ACUTE OR CHRONIC, W/O HEMOR OR PERF Status: Acute (4) Septic shock Code(s): A41.9 - SEPSIS, UNSPECIFIED ORGANISM; R65.21 - SEVERE SEPSIS WITH SEPTIC SHOCK Status: Acute - Plan s/p EGD. s/p blood transfusion. f/u cbc. Continue antibiotics. ESBL E.Coli f/u with ID.
[2019-03-07] MEDS: HYDROcodone/Acetaminophen 5/325 mg Tablet PO PRN (18:00)
[2019-03-08] MEDS: Nicotine 14 MG PATCH TD SCH (05:47)
[2019-03-08] MEDS: MEROPENEM 1 GM/50 ML 1 GM in Premix Bag 1 BAG IVPB SCH ×3 (05:47→20:40)
[2019-03-08] MEDS: HYDROcodone/Acetaminophen 5/325 mg Tablet PO PRN ×2 (05:52→20:38)
[2019-03-08] MEDS: Nystatin Cream 15 GM TUBE TOP SCH ×2 (08:17→20:05)
[2019-03-08] MEDS: D5 0.9% NS w/ 20 mEq KCl 1,000 ML IV SCH (08:19)
--- NOTE | 2019-03-08 13:32 | PDOC.HOSPP ---
- Subjective Encounter Date: 03/08/19 Encounter Time: 13:32 Subjective: cc: f/u for sepsis, esbl ecoli pyelonephritis and bacteremia, GIB, PUD, anemia, hypokalemia subjective: patient is new to me. seen and personally examined. chart and labs and imaging results reviewed. fatigued but feels better overall. notes chronic pain. denies abdominal pain. nonoliguric. denies melena. tolerating oral intake. nursing staff notes no acute events. - Objective Vital Signs & Weight: Vital Signs (12 hours) Temp Pulse Resp BP Pulse Ox 03/08/19 12:45 80 16 96 03/08/19 08:39 97.8 F 74 24 H 113/62 98 03/08/19 08:00 98 03/08/19 07:31 95 03/08/19 07:29 78 18 95 Weight Admit Weight 151 lb 7.321 oz Weight 151 lb 7.321 oz Most Recent Monitor Data Heart Rate from ECG 78 NIBP 110/82 NIBP BP-Mean 91 Respiration from ECG 14 SpO2 88 I&O: 03/07/19 03/08/19 03/09/19 06:59 06:59 06:59 Intake Total 2099 1974 Balance 2099 1974 Result Diagrams: 03/08/19 13:59 03/08/19 13:59 Hospitalist ROS - Review of Systems Other: ROS: pertinent positive per SUBJECTIVE. remainder ROS negative. - Medication Medications: Active Medications Generic Name Dose Route Start Last Admin Trade Name Freq PRN Reason Stop Dose Admin Acetaminophen 650 mg 02/26/19 06:09 03/07/19 08:04 Tylenol PO 650 mg Q4H PRN Administration Headache/Fever/Mild Pain (1-3) Albuterol/Ipratropium 3 ml 02/28/19 01:55 03/08/19 12:45 Duoneb NEB 3 ml Q6H PRN Administration SOB/WHEEZE Meropenem 1 gm/ Device 50 mls @ 100 mls/hr 03/03/19 14:00 03/08/19 12:[address] Administration Melatonin 3 mg 02/28/19 19:41 02/28/19 20:08 Melatonin PO 3 mg HS PRN Administration Insomnia Nicotine 14 mg 02/26/19 06:15 03/08/19 05:47 Nicoderm Patch TD [address] Administration Nystatin 0 gm 03/03/19 21:00 03/08/19 08:17 Mycostatin Cream TOP [address] Administration Ondansetron HCl 4 mg 02/26/19 06:09 03/06/19 12:46 Zofran IVP 4 mg Q6H PRN Administration Nausea/Vomiting Pantoprazole Sodium 40 mg 03/01/19 21:00 03/08/19 08:17 Protonix PO [address] Administration Sertraline HCl 50 mg 03/01/19 09:00 03/08/19 08:17 Zoloft PO [address] Administration Sodium Chloride 10 ml 02/26/19 16:34 03/03/19 08:20 Flush - Normal Saline IVF 10 ml PRN PRN Administration Saline Flush Throat Lozenges 1 kaylee 02/28/19 11:37 02/28/19 12:16 Cepastat Lozenges PO 1 kaylee PRN PRN Administration ORAL PAIN - Exam General Appearance: awake alert General - other findings: fatigued in appearance. Eye: PERRL, anicteric sclera ENT: normocephalic atraumatic, no oropharyngeal lesions, moist mucosa Neck: supple, no JVD Neck - other findings: right IJ TLC Heart: RRR, no murmur Heart - other findings: left chest wall PPM site Respiratory: CTAB, no wheezes, no rales, normal chest expansion Gastrointestinal: soft, non-tender, non-distended, normal bowel sounds Gastrointestinal - other findings: no CVA tenderness or flank pain Extremities: no cyanosis, no clubbing, no edema Skin: normal turgor, no lesions, no rashes Neurological: cranial nerve grossly intact, normal sensation to touch, no focal deficits Musculoskeletal: normal tone, normal strength, no muscle wasting Psychiatric: normal affect, normal behavior, A&O x 3 Hosp A/P - Plan Septic shock due to ESBL ecoli pyelonephritis and bacteremia noted on 02/26/19 blood cultures. shock resolved. ID following. continue IV merrem. request PICC line and then discontinue right IJ TLC. noted CT abdomen/pelvis on 03/03 suggesting right perinephric stranding and hypoattenuation suggestive of possible developing abscess. patient's last fever was on 03/06 102.3 and afebrile since; discussed with ID who recommends no additional imaging for now. will require IV invanz vs Merrem upon discharge. last blood cultures 03/06/19 NGTD. UGIB due to PUD. s/p EGD 02/26/19 with 2cm gastric antrum ulcer amongst other nonbleeding gastric and nonbleeding duodenal ulcers. monitor H&H. continue po PPI BID. avoid NSAID and ulcerogenic medications. follow pathology. Acute blood loss anemia due to UGIB. monitor H&H. no transfusion products required LEIGH ANN, resolved. Hypokalemia, repleted generalized weakness and deconditioning. continue PT and OT. encourage OOB to chair. History PPM chronic pain GI px: PPI BID DVT px: SCD Dispo: monitor patient's progress. home with [facility] with IV antibiotics vs SNF
[2019-03-08 14:09] LABS: #Basophils 0.1 thou/uL (0.0-0.2); #Lymphocytes 1.4 thou/uL (1.20-3.40); #Monocytes 0.6 thou/uL (0.11-0.59); #Neutrophils 3.5 thou/uL (1.40-6.50); %Basophils 1.2 % (0.0-1.0); %Eosinophils 0.8 % (0.0-10.0); %Lymphocytes 24.3 % (21.0-51.0); %Monocytes 10.5 % (0.0-10.0); %Neutrophils 63.2 % (42.0-75.0); Hemoglobin 9.4 g/dL (12.0-16.0); Mean Corpuscular HGB CONC 31.1 g/dL (32.0-36.0); Mean Corpuscular Volume 83.8 fL (78.0-98.0); Mean Platelet Volume 6.1 fL (7.4-10.4); Platelet Count 470 thou/uL (130-400); RBC Distribution Width 16.6 % (11.5-14.5); Red Blood Cell (RBC) Count 3.62 mill/uL (4.20-5.40); White Blood Cell (WBC) Count 5.6 thou/uL (4.8-10.8)
[2019-03-08 14:33] LABS: Anion Gap 13 mmol/L (10-20); BUN (Urea Nitrogen) 6 mg/dL (9.8-20.1); Calc. Creatinine Clearance 100 mL/min (70-130); Calcium 8.5 mg/dL (7.8-10.44); Carbon Dioxide 28 mmol/L (23-31); Chloride 101 mmol/L (98-107); Estimated GFR-MDRD Greater than 90; Glucose 115 mg/dL (80-115); Potassium 3.7 mmol/L (3.5-5.1); Sodium 138 mmol/L (136-145)
[2019-03-09] MEDS: MEROPENEM 1 GM/50 ML 1 GM in Premix Bag 1 BAG IVPB SCH ×3 (05:48→21:18)
[2019-03-09] MEDS: Nicotine 14 MG PATCH TD SCH (05:48)
[2019-03-09 05:59] LABS: Prothrombin Time 13.4 SEC (12.0-14.7)
[2019-03-09] MEDS: Acetaminophen 325 MG TAB PO PRN (09:15)
[2019-03-09] MEDS: Nystatin Cream 15 GM TUBE TOP SCH ×2 (09:15→21:17)
--- NOTE | 2019-03-09 14:24 | PDOC.EVN ---
Event Note - Event Note Event Note: [id number] Progress note
--- NOTE | 2019-03-09 14:31 | SPC ---
PICC LINE PLACEMENT USING ULTRASOUND AND FLUOROSCOPIC GUIDANCE DIAGNOSIS: Need for long-term IV antibiotics [employer]: Abel ANESTHESIA: 1 mL of buffered 1% lidocaine. EXPOSURE: 0.3 minutes of fluoroscopic time; 983 mGy/sq cm TECHNIQUE: Prior to the procedure, the risks and benefits of a PICC placement were explained and full consent was obtained. The right upper extremity was prepped and draped in the usual sterile fashion with a tourniquet in t he axillary region. Ultrasound was used to interrogate the upper arm showing an adequate basilic vein. Lidocaine was used to anesthetize the skin overlying the vein. A micropuncture needle was used to acc ess the vein. After the return of dark venous blood, a PICC wire was placed through the micropuncture needle with its tip at the atriocaval junction. The PICC line was measured on the PICC wire and cut to 47 cm. A small skin incision was made allowing for passage of the peel-away sheath. This peel-away sheath was then placed over the PICC wire. The PICC line was then placed over the wire through the peel-away sheath and the sheath removed. The PICC line was seen with its tip at the atriocaval junction. The line flushed and aspirated without difficulty.
[2019-03-09] MEDS: HYDROcodone/Acetaminophen 5/325 mg Tablet PO PRN ×2 (15:00→21:16)
--- NOTE | 2019-03-09 15:00 | PRG ---
DATE OF SERVICE: 03/09/2019 SUBJECTIVE: The patient is being followed for sepsis, ESBL Escherichia coli pyelonephritis and bacteremia, GI bleed, anemia, hypokalemia. Subjectively, the patient is feeling better overall. She denies abdominal pain. The patient is awaiting for PICC line placement. PHYSICAL EXAMINATION: GENERAL: The patient is awake, alert, and does not appear to be in acute distress. VITAL SIGNS: Temperature is 98, pulse is 84, respiratory rate 20, blood pressure is 112/66, pulse oximetry is 95%. HEAD AND NECK: Normocephalic, atraumatic. NECK: Supple. No JVD. CHEST: Fair bilateral air entry. HEART: S1, S2. Regular. ABDOMEN: Soft, nontender. Bowel sounds present. NEUROLOGIC: Awake, alert, oriented. Unable to assess. EXTREMITIES: No clubbing, no cyanosis. LABORATORY DATA: WBC 5.6, hemoglobin 9.4, platelets 470. Sodium 138, potassium 3.5, BUN is 6, creatinine 0.5, glucose 115. CURRENT MEDICATIONS: Reviewed. REVIEW OF SYSTEMS: Review of 14 systems negative except what is mentioned in history of present illness. ASSESSMENT AND PLAN: 1. Septic shock due to extended-spectrum beta-lactamase, Escherichia coli pyelonephritis and bacteremia noted on 02/26/2019. The patient currently is hemodynamically stable, shock resolved. Continue IV antibiotics as per Infectious Disease, awaiting PICC line placement. 2. Upper gastrointestinal bleeding due to peptic ulcer disease, status post EGD on 02/26/2019 with 2 cm gastric antrum ulcer. Continue to monitor hemoglobin and hematocrit. Continue oral PPI. Avoid NSAIDs medications. 3. Acute blood loss anemia, continue to monitor hemoglobin, hematocrit. 4. Acute kidney injury, resolved. 5. Hypokalemia, replaced. 6. Generalized weakness and deconditioning. Continue PT and OT evaluation and treat. 7. Chronic pain. 8. Deep venous thrombosis prophylaxis, SCD. Job ID: [id number]
[2019-03-10] MEDS: Nicotine 14 MG PATCH TD SCH (06:00)
[2019-03-10] MEDS: MEROPENEM 1 GM/50 ML 1 GM in Premix Bag 1 BAG IVPB SCH ×3 (06:00→20:05)
[2019-03-10 06:40] LABS: #Basophils 0.1 thou/uL (0.0-0.2); #Eosinphils 0.1 thou/uL (0.0-0.7); #Lymphocytes 1.6 thou/uL (1.20-3.40); #Monocytes 0.6 thou/uL (0.11-0.59); #Neutrophils 2.6 thou/uL (1.40-6.50); %Basophils 1.4 % (0.0-1.0); %Monocytes 11.6 % (0.0-10.0); Hemoglobin 8.7 g/dL (12.0-16.0); Mean Corpuscular HGB CONC 31.3 g/dL (32.0-36.0); Mean Corpuscular Hemoglobin 25.6 pg (27.0-31.0); Mean Corpuscular Volume 81.9 fL (78.0-98.0); Mean Platelet Volume 6.6 fL (7.4-10.4); Platelet Count 460 thou/uL (130-400); RBC Distribution Width 16.4 % (11.5-14.5); Red Blood Cell (RBC) Count 3.37 mill/uL (4.20-5.40); White Blood Cell (WBC) Count 4.9 thou/uL (4.8-10.8)
[2019-03-10 06:48] LABS: Anion Gap 11 mmol/L (10-20); BUN (Urea Nitrogen) 8 mg/dL (9.8-20.1); Calc. Creatinine Clearance 107 mL/min (70-130); Calcium 8.7 mg/dL (7.8-10.44); Carbon Dioxide 30 mmol/L (23-31); Chloride 100 mmol/L (98-107); Estimated GFR-MDRD Greater than 90; Glucose 87 mg/dL (80-115); Potassium 3.7 mmol/L (3.5-5.1); Sodium 137 mmol/L (136-145)
[2019-03-10] MEDS: Nystatin Cream 15 GM TUBE TOP SCH ×2 (08:58→20:05)
--- NOTE | 2019-03-10 13:26 | PDOC.EVN ---
Event Note - Event Note Event Note: [id number] Progress
--- NOTE | 2019-03-10 14:03 | PRG ---
DATE OF SERVICE: 03/10/2019 SUBJECTIVE: The patient is feeling much better. No pain. No respiratory symptoms. Voiding without difficulty. No diarrhea. OBJECTIVE: VITAL SIGNS: She is afebrile about 3 days. Other vital signs are fairly unremarkable. GENERAL: Awake, alert and oriented. Has a PICC line in right upper extremity. LUNGS: Clear. HEART: S1, S2. Regular rate. ABDOMEN: Soft. Not distended or tender. EXTREMITIES: No edema. Moves extremities equally. LABORATORY DATA: White cell count 4.9, hemoglobin 8.7, platelets 460. Differential has improved. Creatinine is at 0.53. Microbiology with ESBL E coli. Negative blood cultures. IMAGING: Pyelonephritis, may be an early abscess in the right kidney. ASSESSMENT AND DISCUSSION: Chronic smoking, chronic obstructive pulmonary disease, sick sinus syndrome with pacemaker, pyelonephritis, possible early abscess of right side with ESBL organism. The patient will need another 10 days of IV ertapenem. We will see, if we can arrange for home administration. Job ID: [id number] [facility]
[2019-03-10] MEDS: Acetaminophen 325 MG TAB PO PRN (14:32)
--- NOTE | 2019-03-10 14:32 | PRG ---
DATE OF SERVICE: 03/10/2019 SUBJECTIVE: The patient is being followed for sepsis, ESBL E coli, pyelonephritis, and bacteremia, GI bleeding, anemia, hypokalemia. Subjectively, the patient continues to feel better and improving, increased strength. The patient had a PICC line placed. PHYSICAL EXAMINATION: GENERAL: Awake, alert, does not appear to be in acute distress. VITAL SIGNS: Blood pressure is 155/80, pulse is 83, respiratory rate is 17, temperature 98, and pulse oximetry . HEAD AND NECK: Normocephalic, atraumatic. NECK: Supple. No JVD. CHEST: Fair bilateral air entry. HEART: S1, S2. Regular. ABDOMEN: Soft, nontender. Bowel sounds present. NEUROLOGIC: Awake, alert, oriented x3. PSYCH: Normal mood. EXTREMITIES: No clubbing, no cyanosis. PICC line right upper extremity. GENITOURINARY: No suprapubic tenderness. No flank tenderness. LABORATORY DATA: WBC is 4.9, hemoglobin 8.7, platelets 460. Sodium 137, potassium 3.7, glucose is 87. MEDICATIONS: Reviewed. The patient is on IV meropenem, other medications reviewed. REVIEW OF SYSTEMS: Review of 14 systems negative except what is mentioned in history of present illness. ASSESSMENT AND PLAN: 1. Septic shock due to extended spectrum beta lactamase E. coli, pyelonephritis, and bacteremia noted on 02/26/2019. The patient currently is hemodynamically stable, shock resolved. Continue IV antibiotic, meropenem as per Infectious Disease. PICC line was placed. 2. Upper gastrointestinal bleeding due to peptic ulcer disease, status post esophagogastroduodenoscopy on 02/26/2019 with 2 cm gastric antrum ulcer. Continue with PPI. Avoid NSAIDs and ulcerogenic medications. 3. Acute blood loss anemia. Hemoglobin and hematocrit have been monitored. 4. Acute kidney injury, improved. 5. Hypokalemia, replaced. 6. Generalized weakness and deconditioning. PT and OT eval and treat. 7. Chronic pain. 8. Deep venous thrombosis prophylaxis, SCDs. 9. Disposition. Case management consulted for discharge planning. Job ID: [id number]
[2019-03-10] MEDS: HYDROcodone/Acetaminophen 5/325 mg Tablet PO PRN (20:04)
[2019-03-11] MEDS: MEROPENEM 1 GM/50 ML 1 GM in Premix Bag 1 BAG IVPB SCH ×3 (05:29→20:36)
[2019-03-11] MEDS: Nicotine 14 MG PATCH TD SCH (05:29)
[2019-03-11 05:51] LABS: Hemoglobin 8.6 g/dL (12.0-16.0); Mean Corpuscular HGB CONC 32.6 g/dL (32.0-36.0); Mean Corpuscular Hemoglobin 25.9 pg (27.0-31.0); Mean Corpuscular Volume 79.4 fL (78.0-98.0); Mean Platelet Volume 6.5 fL (7.4-10.4); Platelet Count 407 thou/uL (130-400); RBC Distribution Width 16.5 % (11.5-14.5); Red Blood Cell (RBC) Count 3.31 mill/uL (4.20-5.40); White Blood Cell (WBC) Count 5.5 thou/uL (4.8-10.8)
[2019-03-11] MEDS: Acetaminophen 325 MG TAB PO PRN (06:06)
[2019-03-11] MEDS: HYDROcodone/Acetaminophen 5/325 mg Tablet PO PRN ×2 (08:55→15:10)
[2019-03-11] MEDS: Nystatin Cream 15 GM TUBE TOP SCH ×2 (08:57→20:39)
--- NOTE | 2019-03-11 12:40 | PDOC.EVN ---
Event Note - Event Note Event Note: [id number] progress
--- NOTE | 2019-03-11 13:20 | PRG ---
DATE OF SERVICE: 03/11/2019 SUBJECTIVE: The patient is being followed for sepsis, ESBL E coli, pyelonephritis, and bacteremia, GI bleeding, anemia, hypokalemia. The patient continues to feel better with improving overall strength. PHYSICAL EXAMINATION: GENERAL: The patient is awake and alert, does not appear to be in acute distress. VITAL SIGNS: Temperature 98.1, pulse is 90, respiratory rate is 18, blood pressure 122/74, and pulse oximetry 91% on room air. HEAD AND NECK: Normocephalic and atraumatic. NECK: Supple. No JVD. CHEST: Fair bilateral air entry. HEART: S1 and S2. Regular. ABDOMEN: Soft and nontender. Bowel sounds present. NEUROLOGIC: Awake, alert, and oriented x3. PSYCHIATRIC: Normal mood. EXTREMITIES: No clubbing. No cyanosis. PICC line in right upper extremity. GENITOURINARY: No suprapubic tenderness. No flank tenderness. LABORATORY DATA: WBC count 5.5, hemoglobin 8.6, and platelets 407. MEDICATIONS: Reviewed. REVIEW OF SYSTEMS: Review of 14 systems negative except what is mentioned above. ASSESSMENT AND PLAN: 1. Septic shock due to extended spectrum beta-lactamase Escherichia coli, pyelonephritis, and bacteremia noted on 02/26/2019. The patient currently is hemodynamically stable. Shock resolved. Continue IV antibiotics as per Infectious Disease. The patient will need another 9 days of IV antibiotic as per Infectious Disease. PICC line has been placed. 2. Upper gastrointestinal bleeding due to peptic ulcer disease, status post esophagogastroduodenoscopy on 02/26/2019 with 2 cm gastric antrum ulcer. Continue with PPI. NSAIDs and ulcerogenic medications. 3. Acute blood loss anemia. Hemoglobin and hematocrit have been monitored. 4. Acute kidney injury, improved. 5. Generalized weakness and deconditioning. PT and OT eval and treat. 6. Hypokalemia, replaced. 7. Chronic pain. 8. Deep venous thrombosis prophylaxis with SCDs. 9. Disposition. Case management consulted for discharge planning. The patient is going to need another 9 days of IV antibiotics as per Infectious Disease. Job ID: [id number]
[2019-03-12] MEDS: MEROPENEM 1 GM/50 ML 1 GM in Premix Bag 1 BAG IVPB SCH ×2 (06:07→13:03)
[2019-03-12] MEDS: Nicotine 14 MG PATCH TD SCH (06:08)
[2019-03-12] MEDS: HYDROcodone/Acetaminophen 5/325 mg Tablet PO PRN (06:12)
[2019-03-12 07:59] VITALS: BP 122/72; TEMP 97.9
[2019-03-12] MEDS: Nystatin Cream 15 GM TUBE TOP SCH (08:30)
--- NOTE | 2019-03-12 15:38 | PDOC.EVN ---
Event Note - Event Note Event Note: [id number] progress
--- NOTE | 2019-03-12 16:01 | PRG ---
DATE OF SERVICE: 03/12/2019 SUBJECTIVE: The patient continues to improve with increased strength. Arrangements for discharge are being made, still waiting for insurance acceptance for outpatient infusion of IV antibiotics. OBJECTIVE: GENERAL: The patient is awake and alert, does not appear to be in acute distress. VITAL SIGNS: Temperature 97.9, pulse is 77, respiratory rate is 20, blood pressure 122/70. HEAD AND NECK: Normocephalic and atraumatic. Neck is supple. No JVD. CHEST: Fair bilateral air entry. HEART: S1 and S2. Regular. ABDOMEN: Soft and nontender. Bowel sounds present. NEUROLOGIC: Awake, alert, and oriented x3. PSYCHIATRIC: Normal mood. EXTREMITIES: No clubbing. No cyanosis. PICC line in right upper extremity. GENITOURINARY: No suprapubic tenderness. No flank tenderness. MEDICATIONS: Reviewed. REVIEW OF SYSTEMS: Review of 14 systems is negative except for what is mentioned in history of present illness. ASSESSMENT AND PLAN: 1. Septic shock due to extended-spectrum beta-lactamase Escherichia coli, pyelonephritis, bacteremia, resolved. The patient currently is hemodynamically stable. Continue IV antibiotics as per Infectious Disease. The patient will need another 9 days of IV antibiotics as per Infectious Disease. PICC line has been placed. 2. Upper gastrointestinal bleeding due to peptic ulcer disease, status post esophagogastroduodenoscopy on 02/26/2019, with 2 cm gastric antrum ulcer. Continue with PPI. 3. Acute blood loss anemia. Hemoglobin and hematocrit have been monitored and remained stable for the last few days. 4. Acute kidney injury, improved. 5. Generalized weakness and deconditioning. PT and OT evaluation and treatment have been going on. The patient continues to improve. 6. Hypokalemia, replaced. 7. Chronic pain. 8. Deep venous thrombosis prophylaxis with ambulation and sequential compression devices. 9. Disposition: Arrangements are being made to set for outpatient infusion of IV antibiotics as per Infectious Disease. Awaiting insurance approval. Job ID: [id number]
--- NOTE | 2019-03-12 18:05 | PDOC.EVN ---
Event Note - Event Note Event Note: [id number] discharge
--- NOTE | 2019-03-12 18:59 | DIS ---
DATE OF ADMISSION: 02/26/2019 DATE OF DISCHARGE: 03/12/2019 FINAL DIAGNOSES: 1. Septic shock. 2. Escherichia coli extended spectrum beta-lactamases bacteremia. 3. Acute gastrointestinal bleeding. 4. Gastric ulcer. 5. Acute blood loss anemia. 6. Acute kidney injury, improved. 7. Generalized weakness and deconditioning, improved. HOSPITAL COURSE: Ms. Bejarano is a 69-year-old female, who was admitted on 02/26/2019 with septic shock due to E coli ESBL bacteremia, pyelonephritis. The patient hemodynamically improved. Shock resolved. The patient was started on IV meropenem. PICC line has been placed. Also, the patient had upper GI bleeding due to peptic ulcer disease. The patient had EGD on 02/26/2019 and was found to have 2 cm gastric antrum ulcer. The patient was started on proton pump inhibitor. The patient to continue on Protonix twice a day. The patient also had acute blood loss anemia. Hemoglobin and hematocrit have been monitored and remained stable for the last 3 days. Also, the patient was in acute kidney injury, which improved. The patient was weak and deconditioned, but with physical therapy and treatment, the patient's strength improves. Also, the patient was hypokalemic, which required to be replaced. The patient is feeling good enough and she wants to go home. Arrangements were made for outpatient IV ertapenem infusion for the next 9 days, which was ordered by Infectious Disease. The patient has been accepted. The patient will be discharged today. CONDITION ON DISCHARGE: Stable. DIET: Heart healthy diet. ACTIVITY: As tolerated. FOLLOWUP: Follow up with primary care physician and Infectious Disease. The patient is discharged in stable condition. Job ID: [id number]
== END 2019-03-12 19:13 | disposition home or self-care (01) | DRG 871 ==
LOC: ERS 02:44 → CCU 05:07 → ERS 05:44 → T4-A 03-01 06:54
PROVIDERS: ADMIT Internal Medicine; ATTEND Internal Medicine
PROC: 30233N1 Transfusion of Nonautologous Red Blood Cells into Peripheral Vein, Percutaneous Approach (ICD-10-PCS; principal; 2019-02-26)
PROC: 3E033XZ Introduction of Vasopressor into Peripheral Vein, Percutaneous Approach (ICD-10-PCS; 2019-02-26)
PROC: 0DB98ZX Excision of Duodenum, Via Natural or Artificial Opening Endoscopic, Diagnostic (ICD-10-PCS; 2019-02-27)
PROC: 0DB78ZX Excision of Stomach, Pylorus, Via Natural or Artificial Opening Endoscopic, Diagnostic (ICD-10-PCS; 2019-02-27)
PROC: 02HV33Z Insertion of Infusion Device into Superior Vena Cava, Percutaneous Approach (ICD-10-PCS; 2019-03-09)
PROC: B518ZZA Fluoroscopy of Superior Vena Cava, Guidance (ICD-10-PCS; 2019-03-09)
DX: A41.51 Sepsis due to Escherichia coli [E. coli] (principal); R65.21 Severe sepsis with septic shock; R57.8 Other shock; K26.4 Chronic or unspecified duodenal ulcer with hemorrhage; K25.4 Chronic or unspecified gastric ulcer with hemorrhage; E87.2 Acidosis; D62 Acute posthemorrhagic anemia; N17.9 Acute kidney failure, unspecified; N12 Tubulo-interstitial nephritis, not specified as acute or chronic; E78.5 Hyperlipidemia, unspecified; E78.00 Pure hypercholesterolemia, unspecified; I10 Essential (primary) hypertension; F32.9 Major depressive disorder, single episode, unspecified; F17.210 Nicotine dependence, cigarettes, uncomplicated; E86.0 Dehydration; G89.29 Other chronic pain; T39.395A Adverse effect of other nonsteroidal anti-inflammatory drugs [NSAID], initial encounter; G47.00 Insomnia, unspecified; E87.8 Other disorders of electrolyte and fluid balance, not elsewhere classified; E87.6 Hypokalemia; Z95.1 Presence of aortocoronary bypass graft; I25.2 Old myocardial infarction; Z90.49 Acquired absence of other specified parts of digestive tract; Z90.710 Acquired absence of both cervix and uterus
CPT/HCPCS: 36415; 36556; 36569; 51702; 71045; 74176; 76770; 80048; 81003; 81015; 83605; 84443; 85007; 85014; 85018; 85025; 85027; 85049; 85610; 86850; 86900; 86901; 87040; 87077; 87086; 87186; 87324; 87389; 87449; 88305; 88312; 90471; 90662; 90670; 94640; 96360; 96365; 96367; 96368; 96375; 99292; C1751; C9113; G0008; G0009; J0171; J0692; J1644; J1720; J1956; J2001; J2185; J2405; J2543; J2704; J3370; J3480; J3490; J7070; J7620

== ENCOUNTER 2019-05-14 09:22 | Outpatient (CLI) | payer MEDICARE ==
--- NOTE | 2019-05-14 10:24 | CT ---
CT chest noncontrast low-dose screening HISTORY: Nicotine dependence. Current smoker. Dyspnea. FINDINGS: Lungs are hyperinflated with scattered mild bulla formation. Densely calcified 0.9 cm lesion within the anterior aspect of the left upper lobe may represent a ham artoma or calcified granuloma. Calcified lymph node about the left hilum. At the right posterolateral lung base is a subpleural 0.3 cm noncalcified nodule. Subtle filling defect within the peripheral bilateral lower lobe bronchi. Likely mucus. No associated peripheral atelectasis. No pleural fluid or pneumothorax. Lack of contrast limits evaluation of the soft tissues. No bulky mediastinal adenopathy. There is sandra cification in the arterial structures. Left subclavian cardiac electronic device is partially visualized. There are degenerative changes of the thoracic spine. IMPRESSION: Lung RADS category 2. Benign. Suggest routine screening. Emphysema. Other incidental-type findings as detailed above. Atherosclerosis.
== END 2019-05-14 09:23 | disposition home or self-care (01) ==
LOC: CT 09:22
PROVIDERS: ATTEND Family Medicine
DX: Z12.2 Encounter for screening for malignant neoplasm of respiratory organs (principal); F17.210 Nicotine dependence, cigarettes, uncomplicated; I70.90 Unspecified atherosclerosis; J43.9 Emphysema, unspecified
CPT/HCPCS: G0297

== ENCOUNTER 2019-06-22 07:41 | Emergency (ER) | payer MEDICARE ==
[2019-06-22] MEDS ORDERED: Ondansetron PF 4 MG/2 ML Vial ONE (08:24)
[2019-06-22] MEDS ORDERED: Morphine 4 MG/ML VIAL ONE (08:24)
[2019-06-22 08:44] LABS: #Lymphocytes 1.1 thou/uL (1.20-3.40); #Monocytes 0.3 thou/uL (0.11-0.59); #Neutrophils 6.8 thou/uL (1.40-6.50); %Basophils 0.4 % (0.0-1.0); %Eosinophils 0.6 % (0.0-10.0); %Lymphocytes 13.1 % (21.0-51.0); %Monocytes 3.2 % (0.0-10.0); %Neutrophils 82.7 % (42.0-75.0); Hemoglobin 14.8 g/dL (12.0-16.0); Mean Corpuscular HGB CONC 31.2 g/dL (32.0-36.0); Mean Corpuscular Hemoglobin 24.9 pg (27.0-31.0); Mean Corpuscular Volume 79.7 fL (78.0-98.0); Mean Platelet Volume 6.6 fL (7.4-10.4); Platelet Count 399 thou/uL (130-400); RBC Distribution Width 16.5 % (11.5-14.5); Red Blood Cell (RBC) Count 5.95 mill/uL (4.20-5.40); White Blood Cell (WBC) Count 8.2 thou/uL (4.8-10.8)
[2019-06-22 08:48] LABS: ALT (SGPT) 11 U/L (8-55); AST (SGOT) 15 U/L (5-34); Alkaline Phosphatase 91 U/L (40-110); Anion Gap 17 mmol/L (10-20); BUN (Urea Nitrogen) 14 mg/dL (9.8-20.1); Bilirubin, Total 0.3 mg/dL (0.2-1.2); Calc. Creatinine Clearance 0 mL/min (70-130); Calcium 9.6 mg/dL (7.8-10.44); Carbon Dioxide 22 mmol/L (23-31); Chloride 102 mmol/L (98-107); Estimated GFR-MDRD 87; Globulin 3.6 g/dL (2.4-3.5); Glucose 163 mg/dL (80-115); Lipase 11 U/L (8-78); Protein, Total 7.6 g/dL (6.0-8.3); Sodium 137 mmol/L (136-145)
--- NOTE | 2019-06-22 10:41 | CT ---
CT ABDOMEN AND PELVIS WITH IV CONTRAST: Oral contrast was not administered. INDICATION: Abdominal pain with nausea and vomiting. Surgical history includes cholecystectomy, appendectomy, and hysterectomy. History of COPD. Comparison made to noncontrast CT abdomen and pelvis dated 03/03/[address] abdomen and pelvis dated 08/06/2018. FINDINGS: Lung bases show chronic changes. No effusion. Prior exam from 03/03/2019 showed bilateral effusions. Lung bases are clear today. The liver is unremarkable. There is mild intrahepatic biliary dilatation in this post cholecystectomy patient. This appears stable when compared to the postcontrast study of 08/06/2018 and is probably o n the basis of post cholecystectomy status. Mild prominence of the common bile duct appears stable. Spleen and pancreas otherwise unremarkable. Adrenal glands normal. Stomach and duodenum unremarkable. The kidneys show symmetric enhancement. There are at least two low density cystic lesions in the left kidney which are stable. Right kidney is smaller but appears stable from 08/06/2018. This kidney was noted to be edematous on 03/03/2019. There is no hydronephrosis. Urinary bladder unremarkable. Review of the intestinal tract showed mild fluid-filled distention of small bowel loops which is nons pecific. This could represent an enteritis or other nonspecific etiology. There is no evidence of sma ll bowel obstruction. Colon appears unremarkable. The left colon and transverse colon are nondistende d. Atherosclerotic changes in aorta again noted without aneurysm. No mass or free fluid identified. Osse ous structures unremarkable and stable. IMPRESSION: Nonspecific fluid-filled distention of small bowel loops. This could represent a nonspecific enteriti s given the history of nausea and vomiting. Findings do not suggest bowel obstruction at this time. POS: [facility]
[2019-06-22] MEDS ORDERED: Iopamidol-370 76% 500 ML 1 ML ONE (11:37)
--- NOTE | 2019-06-26 09:48 | EKG ---
Test Reason : CHEST PAIN Blood Pressure : / mmHG Vent. Rate : 070 BPM Atrial Rate : 070 BPM P-R Int : 218 ms QRS Dur : 156 ms QT Int : 472 ms P-R-T Axes : 067 -72 113 degrees QTc Int : 509 ms Electronic ventricular pacemaker Confirmed by LUIS ENRIQUE ZAFAR DO ([id number]), international editorial producer TOVA LOPES ([id number]) on 06/26/2019 9:48:05 AM Referred By: CHARISMA Confirmed By:LUIS ENRIQUE ZAFAR DO
== END 2019-06-22 11:27 | disposition home or self-care (01) ==
LOC: ERS 07:41
DX: R10.13 Epigastric pain (principal); R11.2 Nausea with vomiting, unspecified; J44.9 Chronic obstructive pulmonary disease, unspecified; I25.2 Old myocardial infarction; E78.5 Hyperlipidemia, unspecified; I10 Essential (primary) hypertension; F32.9 Major depressive disorder, single episode, unspecified; F17.210 Nicotine dependence, cigarettes, uncomplicated
CPT/HCPCS: 74177; 80053; 83690; 85025; 93005; 96361; 96374; 96375; 99284; J2270; J2405; Q9967; 36415

== ENCOUNTER 2020-01-27 15:37 | Inpatient (IN) | payer MEDICARE ==
[~2020-01-27 15:37] MED LIST changes: -ISOVUE-370 76%-LOCM 1 ML ONE; +Iopamidol-370 76% 500 ML 1 ML ONE
[2020-01-27] MEDS ORDERED: cefTRIAXone\\ROCEPHIN 1 GM VIAL ONE (16:24)
[2020-01-27] MEDS ORDERED: methylPREDNISolone Sod Succ/PF 125 MG/2 ML VIAL ONE (16:24)
[2020-01-27] MEDS ORDERED: Azithromycin 500 MG VIAL ONE (16:24)
[2020-01-27 16:47] LABS: Hemoglobin 14.6 g/dL (12.0-16.0); Mean Corpuscular HGB CONC 30.6 g/dL (32.0-36.0); Mean Corpuscular Hemoglobin 27.5 pg (27.0-31.0); Mean Platelet Volume 7.4 fL (7.4-10.4); Platelet Count 390 thou/uL (130-400); RBC Distribution Width 13.3 % (11.5-14.5); Red Blood Cell (RBC) Count 5.31 mill/uL (4.20-5.40); White Blood Cell (WBC) Count 32.3 thou/uL (4.8-10.8)
[2020-01-27 17:03] LABS: Band 75 % (5-11); Hypochromia SLIGHT = 6-15 cells (100X) (0-5/hpf); MDiff Complete? YES; Metamyelocyte 1 % (0-0); Monocytes 1 % (0-10); Neutrophil 22 % (42-75); Platelet Morphology Comment Appears Adequate; Polychromasia SLIGHT = 2-3 cells (100X) (0-2/hpf); Reactive Lymphocytes 1 % (0-10); Reflex for Review?? YES
[2020-01-27 17:08] LABS: ALT (SGPT) 16 U/L (8-55); AST (SGOT) 26 U/L (5-34); Alkaline Phosphatase 119 U/L (40-110); Anion Gap 21 mmol/L (10-20); BUN (Urea Nitrogen) 39 mg/dL (9.8-20.1); Bilirubin, Total 0.7 mg/dL (0.2-1.2); Calc. Creatinine Clearance 0 mL/min (70-130); Calcium 9.7 mg/dL (7.8-10.44); Carbon Dioxide 21 mmol/L (23-31); Chloride 97 mmol/L (98-107); Estimated GFR-MDRD 64; Globulin 3.3 g/dL (2.4-3.5); Glucose 235 mg/dL (83-110); Potassium 3.5 mmol/L (3.5-5.1); Protein, Total 6.3 g/dL (6.0-8.3); Sodium 135 mmol/L (136-145)
[2020-01-27] MEDS ORDERED: Ondansetron PF 4 MG/2 ML Vial ONE (17:22)
[2020-01-27] MEDS ORDERED: Albuterol 200 PUFF (6.7GM INHALER) ONE (17:22)
--- NOTE | 2020-01-27 17:26 | RAD ---
RADIOGRAPH CHEST 1 VIEW: DATE: 01/27/2020 TIME: 5:07 PM HISTORY: 70-year-old female with dyspnea. COMPARISON: 03/03/2019 FINDINGS: New finding of dense consolidation of the entire left, with alveolar infiltrates extending down the l eft mid lung zone. A portion of the left infiltrates reaches the left base. No midline shift of the trachea, mediastinum, or heart. Left subclavian dual lead pacemaker remains. The previously seen right-sided central venous catheter is no longer present. The previously seen right-sided infiltrates have resolved. Currently, the right lung is clear. No pne umothorax. IMPRESSION: 1) severe consolidation of essentially entire left upper lobe, with infiltrates involving some of the left lower lobe. 2) differential diagnosis includes pneumonia and pulmonary hemorrhage.
[2020-01-27 18:09] LABS: SARS-CoV-2 NAA Rapid Test Not Detected (NotDetected)
--- NOTE | 2020-01-27 18:21 | CT ---
CT BRAIN NONCONTRAST: DATE: 01/27/2020 HISTORY: 70-year-old female with dizziness FINDINGS: There is no evidence of acute intra-axial or extra-axial hemorrhage. There is no midline shift or any other mass effect. There is no extra-axial fluid collection. The ventricles are normal in size and configuration. The tympanomastoid cavities, and the upper portions of the paranasal sinuses included in these images, are grossly clear. Calvarium is intact. IMPRESSION: Normal.
--- NOTE | 2020-01-27 18:43 | CT ---
CT ANGIOGRAM THORAX WITH CONTRAST: (CTA pulmonary angiogram) DATE: 01/27/2020 HISTORY: 70-year-old female with dyspnea and weakness TECHNIQUE: IV injection of iodinated contrast. Scan acquisition timing attempted to coincide with iodinated contrast bolus reaching maximal density in pulmonary arteries. 3-D MIP reconstructions. FINDINGS: There is consolidation of most of the volume of the left upper lobe, including entire apical posterio r segment, most of the anterior segment, and much of the lingula, all with extensive air bronchograms, and contiguous with soft tissue density material can fluid and inseparable from each ot her involving the left hilum left subcarinal mediastinum, and multiple significantly enlarged pretracheal, left paratracheal, and AP window confluent mediastinal lymph nodes. The consolidation also contiguously involves the medial portion of the superior segment of left lower lobe. Trachea and bilateral mainstem bronchi, and there proximal branches, are patent and clear. Also, the air bronchograms also do not appear severely narrowed. There are biapical bullae. There is an air cyst at the anterior base of right lower lobe. No evidence of pulmonary thromboembolism. No thoracic aortic aneurysm or dissection. No pleural effusion, cardiomegaly, pericardial effusion, or pneumothorax. Otherwise, the rest of the right lung is clear. IMPRESSION: 1) severe consolidation of almost the entire left upper lobe, and portion of superior segment of left lower lobe: Severe left lobar pneumonia. 2) moderately severe mediastinal lymphadenopathy. This is presumed to be reactive due to the pneumoni a, but the possibility of concomitant malignancy is raised. Recommend follow-up chest CT in 3 months. 3) no pulmonary thromboembolism. 4) mild paraseptal emphysema.
[2020-01-27] MEDS ORDERED: Vancomycin 1 GM/200 ML BAG ONE (18:52)
[2020-01-27] MEDS ORDERED: HumaLOG 300 UNITS/3 ML VIAL SC PRN (19:26)
[2020-01-27] MEDS ORDERED: Dextrose 5% in Water 1,000 ML IV PRN (19:26)
[2020-01-27] MEDS ORDERED: Dextrose 50% Abboject 50 ML SYRINGE SLOW IVP PRN (19:26)
--- NOTE | 2020-01-27 19:43 | PDOC.BPN ---
- Brief Progress Note [id number] HP dictated
[2020-01-27 22:14] VITALS: BMI 23.6
[2020-01-27] MEDS: methylPREDNISolone Sod Succ 40 MG VIAL IVP SCH (23:46)
--- NOTE | 2020-01-28 00:59 | HP ---
CHIEF COMPLAINT: Shortness of breath and weakness. HISTORY OF PRESENT ILLNESS: Ms. Bejarano is a 70-year-old female, with past medical history of COPD, hyperlipidemia, hypertension, and cigarette smoker, presents to the emergency room with shortness of breath and weakness for the last week. Patient denies fever, abdominal pain, vomiting, as well as chest pain. She denies being around sick contacts. She has a long history of smoking. She has a history of multiple stents. She has a history of myocardial infarction. Workup in the emergency room, patient was hypoxic with oxygen saturation of 85% on room air. Patient was placed on 3 L/minute nasal cannula. Oxygen saturation 93%. Patient was tachycardic with a heart rate 110, tachypneic. Temperature is 97.6. Workup in the emergency room, patient had elevated lactic acid of 3.2, sodium 135 with a potassium of 3.5, BUN is 39, and creatinine 0.8. WBC 32,000, hemoglobin 14.6, and platelets 390. CT of the brain was done which was negative. COVID-[address] of the chest was done, which showed severe consolidation of the entire left upper lobe. Moderate severe mediastinal lymphadenopathy reactive, but the possibility of malignancy cannot be ruled out. Also, it did show mild paraseptal emphysema. No pulmonary thromboembolism. Septic workup was done in the ED. Patient was started on IV antibiotics. Also, patient was given IV Solu-Medrol. Patient was found to have elevated glucose of 100 to 135. No history of diabetes reported. Patient is being admitted to hospital for further management. PAST MEDICAL HISTORY: As mentioned above in history of present illness. PAST SURGICAL HISTORY: 1. Pacemaker placement. 2. Cholecystectomy. 3. Hysterectomy. 4. Bilateral feet surgery. 5. Two cardiac stents. PAST PSYCHIATRIC HISTORY: Depression. SOCIAL HISTORY: Long history of cigarette smoker. Currently, she smokes half pack a day. She denies alcohol drinking or drug abuse. FAMILY HISTORY: Reviewed and noncontributory. HOME MEDICATIONS: See home medication reconciliation form for updated medications. ALLERGIES: NO KNOWN ALLERGIES. REVIEW OF SYSTEMS: Review of 14 systems negative, except what is mentioned in the history of present illness. PHYSICAL EXAMINATION: GENERAL: Patient is awake, alert, in moderate distress. VITAL SIGNS: Blood pressure 126/83, pulse is 93, respiratory rate is 22, and oxygen saturation is 93% on 3 L/minute nasal cannula. HEAD AND NECK: Normocephalic, atraumatic. Neck is supple. No JVD. CHEST: Coarse bilateral breath sounds, more on the left. HEART: S1, S2. Regular. ABDOMEN: Soft, nontender. Bowel sounds present. NEUROLOGIC: Awake, alert, oriented, moving extremities. PSYCH: Unable to assess. EXTREMITIES: No clubbing, no cyanosis. GENITALIA: No suprapubic tenderness. No flank tenderness. SKIN: No apparent rash. LABORATORY DATA: As mentioned above in history of present illness. IMAGING STUDIES: As mentioned above in history of present illness. ASSESSMENT AND PLAN: 1. Acute hypoxic respiratory failure. 2. Pneumonia. 3. Sepsis. 4. Elevated lactic acid. 5. Chronic obstructive pulmonary disease with exacerbation. 6. Coronary artery disease with history of myocardial infarction and stents. 7. Hyperglycemia ?history of diabetes. PLAN: 1. Admit. 2. Septic workup including cultures done in the ED. 3. IV antibiotics. 4. IV steroids. 5. Bronchodilators scheduled and as needed. 6. Oxygen to keep saturation more than 92%. 7. Monitor and control blood glucose. 8. DVT prophylaxis, as appropriate. 9. GI prophylaxis, as appropriate. 10. Expected length of stay, 2 midnights or more. Job ID: [id number]
[2020-01-28 01:12] LABS: Vancomycin, Trough 9.4 ug/mL
[2020-01-28] MEDS: Cefepime 2 GM in Sodium Chloride 0.9% 100 ML IVPB SCH ×2 (02:17→14:15)
[2020-01-28] MEDS: methylPREDNISolone Sod Succ 40 MG VIAL IVP SCH ×4 (05:25→23:57)
[2020-01-28] MEDS ORDERED: Vancomycin 1 GM in Premix Bag 1 BAG IVPB SCH (08:00)
[2020-01-28 08:01] LABS: Anion Gap 15 mmol/L (10-20); BUN (Urea Nitrogen) 23 mg/dL (9.8-20.1); Calc. Creatinine Clearance 82 mL/min (70-130); Calcium 9.7 mg/dL (7.8-10.44); Carbon Dioxide 23 mmol/L (23-31); Chloride 102 mmol/L (98-107); Estimated GFR-MDRD Greater than 90; Glucose 171 mg/dL (83-110); Potassium 3.3 mmol/L (3.5-5.1); Sodium 137 mmol/L (136-145)
[2020-01-28 08:30] LABS: Band 40 % (5-11); Hemoglobin 12.8 g/dL (12.0-16.0); Lymphocytes 3 % (21-51); MDiff Complete? YES; Mean Corpuscular HGB CONC 29.9 g/dL (32.0-36.0); Mean Corpuscular Hemoglobin 27.4 pg (27.0-31.0); Mean Corpuscular Volume 91.6 fL (78.0-98.0); Mean Platelet Volume 7.3 fL (7.4-10.4); Monocytes 3 % (0-10); Neutrophil 54 % (42-75); Platelet Count 380 thou/uL (130-400); Platelet Morphology Comment Appears Adequate; Polychromasia SLIGHT = 2-3 cells (100X) (0-2/hpf); RBC Distribution Width 13.4 % (11.5-14.5); Red Blood Cell (RBC) Count 4.66 mill/uL (4.20-5.40); Toxic Granulation SLIGHT; Vacuoles SLIGHT; White Blood Cell (WBC) Count 32.2 thou/uL (4.8-10.8)
[2020-01-28] MEDS: Enoxaparin Sodium 40 MG/0.4 ML SYRINGE SC SCH (08:38)
[2020-01-28] MEDS ORDERED: FLU VACC QS2020-21(65YR UP)/PF 240 MCG/0.7 ML SYRINGE IM ONE (09:00)
[2020-01-28] MEDS ORDERED: Potassium Chloride 20 MEQ TAB PO SCH (09:45)
--- NOTE | 2020-01-28 14:00 | CON ---
DATE OF CONSULTATION: 01/28/2020 Anum Bejarano is a 70-year-old female who was admitted last night with symptoms of shortness of breath, cough, fever, and chills. She was sick for several days. She had a Coronavirus test done which is negative. X-ray and CT showed extensive left lung necrotizing pneumonia. She has been smoking and apparently still smoked until most recently. PAST MEDICAL HISTORY: COPD, coronary artery disease, hyperlipidemia, high cholesterol, hypertension. PAST SURGICAL HISTORY: Previous endoscopy for GI bleed, previous renal failure. She had seen in our office before. Previous surgery for bleed. HOME MEDICATIONS: Include: 1. Zoloft 50. 2. Protonix 40. ALLERGIES: NO ALLERGIES. REVIEW OF SYSTEMS: Unremarkable. PHYSICAL EXAMINATION: GENERAL: She is lying in bed. Denies any pain. VITAL SIGNS: Temperature 97, pulse , respiratory rate 20, she is on high-flow 95%, blood pressure . CHEST: Rhonchi and crackles, left greater than right. CARDIAC: Normal S1, S2. No gallop. GI: No masses. DIAGNOSTIC STUDIES: White count 30,000, ,54 segs, 40 bands. ASSESSMENT: Left-sided pneumonia, COPD, marked leukocytosis. So far, RNA PCR Coronavirus not detected on 01/26. PLAN: Clindamycin is added. Continue steroids, neb treatments, supportive care. Sputum culture. She is to refrain from smoking. We will deescalate antibiotics once we get cultures back. Consultation note, 70 minutes, 50% direct patient care. Job ID: [id number]
[2020-01-28] MEDS: Clindamycin/D5W 600 MG in Premix Bag 1 BAG IVPB SCH ×2 (14:15→22:35)
[2020-01-28] MEDS ORDERED: Azithromycin 500 MG in Sodium Chloride 0.9% 250 ML 250 ML IVPB SCH (17:00)
[2020-01-28] MEDS ORDERED: Vancomycin HCl 1.25 GM in Sodium Chloride 0.9% 250 ML 250 ML IVPB SCH (18:00)
--- NOTE | 2020-01-28 18:06 | PDOC.HOSPP ---
- Subjective Encounter Date: 01/28/20 Subjective: The patient is still requiring HFNC. - Objective Vital Signs & Weight: Vital Signs (12 hours) Temp Pulse Resp BP Pulse Ox 01/28/20 16:15 98 F 81 18 139/92 H 96 01/28/20 14:20 84 18 97 01/28/20 13:09 78 22 H 01/28/20 11:00 97.7 F 88 20 138/79 95 01/28/20 08:50 86 18 91 L 01/28/20 07:55 98.1 F 85 20 136/75 89 L 01/28/20 07:05 82 20 96 Weight Weight 137 lb 14.4 oz Result Diagrams: 01/28/20 07:32 01/28/20 07:32 Additional Labs: Accuchecks 01/28/20 01/28/20 01/28/20 15:44 11:30 04:19 POC Glucose 152 H 158 H 150 H Hospitalist ROS - Medication Medications: Active Medications Generic Name Dose Route Start Last Admin Trade Name Navidq PRN Reason Stop Dose Admin Albuterol/Ipratropium 3 ml 01/28/20 01:00 01/28/20 13:09 Ipratropium/Albuterol Sulfate 3 Ml Neb NEB [id number] Administration Enoxaparin Sodium 40 mg 01/28/20 09:00 01/28/20 08:38 Enoxaparin Sodium 40 Mg/0.4 Ml Syringe SC [address] Administration Azithromycin 500 mg/ Sodium 250 mls @ 250 mls/hr 01/28/20 17:00 01/28/20 17:56 Chloride IVPB [address] Administration Cefepime HCl 2 gm/ Sodium 100 mls @ 200 mls/hr 01/28/20 02:00 01/28/20 14:15 Chloride IVPB [address]ls [address] Administration Clindamycin Phosphate/Dextrose 50 mls @ 100 mls/hr 01/28/20 14:00 01/28/20 14:15 600 mg/ Device IVPB [address] Administration Methylprednisolone Sodium Succinate 40 mg 01/27/20 23:59 01/28/20 17:57 Methylprednisolone Sod Succ 40 Mg Vial IVP [address] Administration - Exam General Appearance: awake alert ENT: normocephalic atraumatic Neck: supple, no JVD Heart: RRR Respiratory: normal chest expansion, no tachypnea, rhonchi Gastrointestinal: soft Extremities: no cyanosis, no clubbing Hosp A/P (1) Sepsis Code(s): A41.9 - SEPSIS, UNSPECIFIED ORGANISM Status: Acute (2) Left upper lobe pneumonia Code(s): J18.9 - PNEUMONIA, UNSPECIFIED ORGANISM Status: Acute (3) Acute respiratory failure with hypoxia Code(s): J96.01 - ACUTE RESPIRATORY FAILURE WITH HYPOXIA Status: Acute - Plan Sepsis and acute respiratory failure with hypoxia due to left upper lobe pneumonia. The patient is requiring 40% FiO2 on high flow nasal cannula. COVID-19 PCR is negative. Continue current broad-spectrum antibiotics. Follow blood culture results. Enoxaparin for DVT prophylaxis.
[2020-01-28] MEDS: Mometasone 200 MCG/Formoterol 5 MCG 120 PUFF INHALER INH SCH (18:52)
[2020-01-29] MEDS: Clindamycin/D5W 600 MG in Premix Bag 1 BAG IVPB SCH ×3 (06:47→21:48)
[2020-01-29] MEDS: methylPREDNISolone Sod Succ 40 MG VIAL IVP SCH (06:50)
[2020-01-29] MEDS: Mometasone 200 MCG/Formoterol 5 MCG 120 PUFF INHALER INH SCH ×3 (07:34→20:32)
[2020-01-29] MEDS: Enoxaparin Sodium 40 MG/0.4 ML SYRINGE SC SCH (08:12)
[2020-01-29] MEDS: Nicotine 21 MG PATCH TOP SCH (08:13)
--- NOTE | 2020-01-29 10:55 | PDOC.HOSPP ---
- Subjective Encounter Date: 01/29/20 (f/u pneumonia) Encounter Time: 10:53 Subjective: Pt reports she is feeling better today - a little. Still feels weak, has a dry cough, mouth feels dry. She denies any new sx. Admitted for an extensive PNA on the left side. - Objective Vital Signs & Weight: Vital Signs (12 hours) Temp Pulse Resp BP Pulse Ox 01/29/20 07:47 97.9 F 72 15 127/78 97 01/29/20 07:36 70 18 97 01/29/20 04:00 97.7 F 78 20 148/73 H 97 01/29/20 00:59 16 01/29/20 00:00 98.1 F 77 20 153/78 H Weight Weight 137 lb 14.4 oz I&O: 01/28/20 01/29/20 01/30/20 06:59 06:59 06:59 Intake Total 1120 Balance 1120 Result Diagrams: 01/29/20 14:11 01/29/20 14:11 Additional Labs: Accuchecks 01/29/20 01/28/20 01/28/20 04:22 19:25 15:44 POC Glucose 137 H 250 H 152 H 01/28/20 11:30 POC Glucose 158 H Hospitalist ROS - Medication Medications: Active Medications Generic Name Dose Route Start Last Admin Trade Name Freq PRN Reason Stop Dose Admin Albuterol/Ipratropium 3 ml 01/28/20 01:00 01/29/20 07:36 Ipratropium/Albuterol Sulfate 3 Ml Neb NEB 3 ml [id number] LANE Administration Enoxaparin Sodium 40 mg 01/28/20 09:00 01/29/20 08:12 Enoxaparin Sodium 40 Mg/0.4 Ml Syringe SC [address] Administration Clindamycin Phosphate/Dextrose 50 mls @ 100 mls/hr 01/28/20 14:00 01/29/20 06:47 600 mg/ Device IVPB [address] Administration Mometasone Furoate/Formoterol Fumar 2 puff 01/28/20 18:30 01/29/20 07:34 Mometasone 200 Mcg/Formoterol 5 Mcg 120 Puff Inhaler INH 2 puff BID-RT LANE Administration Nicotine 21 mg 01/29/20 09:00 01/29/20 08:13 Nicotine 21 Mg Patch TOP [address] Administration - Exam General Appearance: NAD Heart: RRR, no murmur Respiratory: no wheezes, no rales, no ronchi Respiratory - other findings: decreased breath sounds Left upper to mid-lung areas Gastrointestinal: soft, non-tender, non-distended, normal bowel sounds Extremities: no cyanosis, no clubbing, no edema Psychiatric: normal affect Hosp A/P (1) Acute respiratory failure with hypoxia Code(s): J96.01 - ACUTE RESPIRATORY FAILURE WITH HYPOXIA Status: Acute (2) Left upper lobe pneumonia Code(s): J18.9 - PNEUMONIA, UNSPECIFIED ORGANISM Status: Acute Qualifiers: Pneumonia type: due to unspecified organism Qualified Code(s): J18.9 - Pneumonia, unspecified organism (3) Sepsis Code(s): A41.9 - SEPSIS, UNSPECIFIED ORGANISM Status: Acute Qualifiers: Sepsis type: sepsis due to unspecified organism (4) Hypertension Code(s): I10 - ESSENTIAL (PRIMARY) HYPERTENSION Status: Chronic Qualifiers: Hypertension type: essential hypertension Qualified Code(s): I10 - Essential (primary) hypertension (5) Coronary artery disease Code(s): I25.10 - ATHSCL HEART DISEASE OF [place] CORONARY ARTERY W/O ANG PCTRS Status: Chronic (6) Tobacco abuse Code(s): Z72.0 - TOBACCO USE Status: Chronic (7) Dyslipidemia Code(s): E78.5 - HYPERLIPIDEMIA, UNSPECIFIED Status: Chronic (8) COPD with exacerbation Code(s): J44.1 - CHRONIC OBSTRUCTIVE PULMONARY DISEASE W (ACUTE) EXACERBATION Status: Acute - Plan Extensive pneumonia and COPD with exacerbation - Appreciate Pulmonology consult -on clindamycin and levaquin - will change IV steroids to oral - continue nebs - continue inhaled laba/steroid - add florastor - add prn cough medicine Elevated blood sugars - do not see DM dx, may be related to steroids - continue ISS Weakness - PT/OT evals dvt prophy - lovenox gi prophy - not indicated code status - full reviewed plan of care with patient, no questions or further needs at end of eval.
--- NOTE | 2020-01-29 12:36 | PRG ---
DATE OF SERVICE: 01/29/2020 SUBJECTIVE: Anum Bejarano, 70-year-old female, still coughing, still short of breath. OBJECTIVE: VITAL SIGNS: Temperature 97, pulse 79, respirations 14, sats 90% on 4 L, blood pressure 124/79. CHEST: Rhonchi, crackles, left greater than right. CARDIAC: Normal S1 and S2. No gallops. ABDOMEN: Soft. ASSESSMENT: Left-sided extensive pneumonia, former smoker. PLAN: Continue her steroids, was switched over to Levaquin by mouth by hospitalist. Will continue clindamycin, neb treatments, supportive care. We will follow. Job ID: [id number]
[2020-01-29 14:38] LABS: Anion Gap 17 mmol/L (10-20); BUN (Urea Nitrogen) 23 mg/dL (9.8-20.1); Calc. Creatinine Clearance 85 mL/min (70-130); Calcium 10.2 mg/dL (7.8-10.44); Carbon Dioxide 24 mmol/L (23-31); Chloride 101 mmol/L (98-107); Estimated GFR-MDRD Greater than 90; Glucose 140 mg/dL (83-110); Potassium 3.4 mmol/L (3.5-5.1); Sodium 139 mmol/L (136-145)
[2020-01-29 14:44] LABS: Band 58 % (5-11); Hemoglobin 12.9 g/dL (12.0-16.0); Hypochromia SLIGHT = 6-15 cells (100X) (0-5/hpf); Lymphocytes 4 % (21-51); MDiff Complete? YES; Mean Corpuscular HGB CONC 31.8 g/dL (32.0-36.0); Mean Corpuscular Volume 91.4 fL (78.0-98.0); Monocytes 1 % (0-10); Neutrophil 35 % (42-75); Platelet Count 365 thou/uL (130-400); Platelet Morphology Comment Appears Adequate; Polychromasia MODERATE = 3-4 cells (100X) (0-2/hpf); RBC Distribution Width 13.5 % (11.5-14.5); Reactive Lymphocytes 2 % (0-10); Red Blood Cell (RBC) Count 4.44 mill/uL (4.20-5.40); Target Cells SLIGHT = 2-5 cells (100X) (0-1/hpf); White Blood Cell (WBC) Count 21.3 thou/uL (4.8-10.8)
[2020-01-29] MEDS ORDERED: Potassium Chloride 20 MEQ TAB PO SCH (16:30)
--- NOTE | 2020-01-29 17:13 | EKG ---
Test Reason : Blood Pressure : / mmHG Vent. Rate : 097 BPM Atrial Rate : 097 BPM P-R Int : 198 ms QRS Dur : 168 ms QT Int : 404 ms P-R-T Axes : 078 -75 096 degrees QTc Int : 513 ms Electronic ventricular pacemaker Confirmed by LUIS ENRIQUE ZAFAR DO ([id number]), publishing editor TOVA LOPES ([id number]) on 01/29/2020 5:12:39 PM Referred By: Confirmed By:LUIS ENRIQUE ZAFAR DO
[2020-01-29] MEDS: Acetaminophen 325 MG TAB PO PRN (19:08)
[2020-01-29] MEDS: Cepastat Lozenges 1 LOZ PO PRN (21:47)
[2020-01-29] MEDS ORDERED: traMADol HCl 50 MG TAB PO SCH (22:00)
[2020-01-30] MEDS: Cepastat Lozenges 1 LOZ PO PRN (04:29)
[2020-01-30] MEDS: diphenhydrAMINE 25 MG CAP PO PRN ×3 (04:45→23:44)
[2020-01-30] MEDS: Clindamycin/D5W 600 MG in Premix Bag 1 BAG IVPB SCH ×3 (06:27→22:47)
[2020-01-30] MEDS: traMADol HCl 50 MG TAB PO PRN ×2 (06:32→17:25)
[2020-01-30 07:10] LABS: Anion Gap 13 mmol/L (10-20); BUN (Urea Nitrogen) 18 mg/dL (9.8-20.1); Calc. Creatinine Clearance 96 mL/min (70-130); Calcium 9.3 mg/dL (7.8-10.44); Carbon Dioxide 31 mmol/L (23-31); Chloride 98 mmol/L (98-107); Estimated GFR-MDRD Greater than 90; Glucose 92 mg/dL (83-110); Magnesium 1.8 mg/dL (1.6-2.6); Potassium 3.2 mmol/L (3.5-5.1); Sodium 139 mmol/L (136-145)
[2020-01-30] MEDS: Mometasone 200 MCG/Formoterol 5 MCG 120 PUFF INHALER INH SCH ×2 (07:16→19:00)
[2020-01-30 08:04] LABS: Band 31 % (5-11); Hemoglobin 12.9 g/dL (12.0-16.0); Lymphocytes 12 % (21-51); MDiff Complete? YES; Mean Corpuscular HGB CONC 31.3 g/dL (32.0-36.0); Mean Corpuscular Hemoglobin 28.5 pg (27.0-31.0); Mean Platelet Volume 6.8 fL (7.4-10.4); Metamyelocyte 1 % (0-0); Monocytes 3 % (0-10); Neutrophil 53 % (42-75); Platelet Count 398 thou/uL (130-400); RBC Distribution Width 13.3 % (11.5-14.5); Red Blood Cell (RBC) Count 4.53 mill/uL (4.20-5.40); White Blood Cell (WBC) Count 18.6 thou/uL (4.8-10.8)
[2020-01-30] MEDS: predniSONE 20 MG TAB PO SCH (08:30)
[2020-01-30] MEDS: Enoxaparin Sodium 40 MG/0.4 ML SYRINGE SC SCH (08:30)
[2020-01-30] MEDS: Saccharomyces boulardii 250 MG CAP PO SCH (08:30)
[2020-01-30] MEDS: Nicotine 21 MG PATCH TOP SCH (08:34)
--- NOTE | 2020-01-30 10:32 | PDOC.HOSPP ---
- Subjective Encounter Date: 01/30/20 (f/u pneumonia) Encounter Time: 10:31 Subjective: Pt reports overall she feels better, but still doesnt feel well. SOB with walking to bathroom. Not sleeping - chronic issue that she takes benadryl for at home. She reports melatonin makes her hallucinate. She denies any new sx. - Objective Vital Signs & Weight: Vital Signs (12 hours) Temp Pulse Resp BP Pulse Ox 01/30/20 07:30 98.5 F 96 15 145/80 H 100 01/30/20 07:13 99 18 97 01/30/20 04:00 98.1 F 89 20 160/84 H 93 L 01/30/20 00:09 16 01/30/20 00:00 97.7 F 81 20 117/61 100 Weight Weight 137 lb 14.4 oz I&O: 01/29/20 01/30/20 01/31/20 06:59 06:59 06:59 Intake Total 1120 1280 Balance 1120 1280 Result Diagrams: 01/30/20 06:19 01/30/20 06:19 Additional Labs: Accuchecks 01/30/20 01/29/20 01/29/20 04:19 19:55 15:39 POC Glucose 93 138 H 129 H Hospitalist ROS - Medication Medications: Active Medications Generic Name Dose Route Start Last Admin Trade Name Freq PRN Reason Stop Dose Admin Acetaminophen 650 mg 01/27/20 19:31 01/29/20 19:08 Acetaminophen 325 Mg Tab PO 650 mg Q4H PRN Administration Headache/Fever/Mild Pain (1-3) Albuterol/Ipratropium 3 ml 01/28/20 01:00 01/30/20 07:13 Ipratropium/Albuterol Sulfate 3 Ml Neb NEB 3 ml [id number] LANE Administration Diphenhydramine HCl 25 mg 01/30/20 04:38 01/30/20 04:45 Diphenhydramine 25 Mg Cap PO 25 mg HSPRN PRN Administration Itching & Insomnia Enoxaparin Sodium 40 mg 01/28/20 09:00 01/30/20 08:30 Enoxaparin Sodium 40 Mg/0.4 Ml Syringe SC [address] Administration Clindamycin Phosphate/Dextrose 50 mls @ 100 mls/hr 01/28/20 14:00 01/30/20 06:27 600 mg/ Device IVPB [address] Administration Insulin Human Lispro 0 units 01/27/20 19:26 01/29/20 12:56 Humalog 300 Units/3 Ml Vial SC 2 unit .MODERATE SLIDING SC PRN Administration Moderate Correctional Scale Levofloxacin 750 mg 01/30/20 06:00 01/30/20 06:27 Levofloxacin 750 Mg Tab PO [address] Administration Mometasone Furoate/Formoterol Fumar 2 puff 01/28/20 18:30 01/30/20 07:16 Mometasone 200 Mcg/Formoterol 5 Mcg 120 Puff Inhaler INH 2 puff BID-RT LANE Administration Nicotine 21 mg 01/29/20 09:00 01/30/20 08:34 Nicotine 21 Mg Patch TOP [address] Administration Prednisone 40 mg 01/30/20 08:00 01/30/20 08:30 Prednisone 20 Mg Tab PO 40 mg QAM-WM LANE Administration Saccharomyces Boulardii 250 mg 01/30/20 09:00 01/30/20 08:30 Saccharomyces Boulardii 250 Mg Cap PO [address] Administration Throat Lozenges 1 logan 01/29/20 10:52 01/30/20 04:29 Cepastat Lozenges 1 Logan PO 1 logan Q2H PRN Administration Sore Throat Tramadol HCl 50 mg 01/30/20 04:38 01/30/20 06:32 Tramadol Hcl 50 Mg Tab PO 50 mg Q4H PRN Administration Pain - Exam General Appearance: NAD Respiratory: no rales, no ronchi Respiratory - other findings: decreased breath sounds left upper chest, overall good air movement Gastrointestinal: soft, non-tender, non-distended, normal bowel sounds Extremities: no cyanosis, no clubbing, no edema Psychiatric: normal affect Hosp A/P (1) Acute respiratory failure with hypoxia Code(s): J96.01 - ACUTE RESPIRATORY FAILURE WITH HYPOXIA Status: Acute (2) Left upper lobe pneumonia Code(s): J18.9 - PNEUMONIA, UNSPECIFIED ORGANISM Status: Acute Qualifiers: Pneumonia type: due to unspecified organism Qualified Code(s): J18.9 - Pneumonia, unspecified organism (3) Sepsis Code(s): A41.9 - SEPSIS, UNSPECIFIED ORGANISM Status: Acute Qualifiers: Sepsis type: sepsis due to unspecified organism (4) Hypertension Code(s): I10 - ESSENTIAL (PRIMARY) HYPERTENSION Status: Chronic Qualifiers: Hypertension type: essential hypertension Qualified Code(s): I10 - Essential (primary) hypertension (5) Coronary artery disease Code(s): I25.10 - ATHSCL HEART DISEASE OF [place] CORONARY ARTERY W/O ANG PCTRS Status: Chronic (6) Tobacco abuse Code(s): Z72.0 - TOBACCO USE Status: Chronic (7) Dyslipidemia Code(s): E78.5 - HYPERLIPIDEMIA, UNSPECIFIED Status: Chronic (8) COPD with exacerbation Code(s): J44.1 - CHRONIC OBSTRUCTIVE PULMONARY DISEASE W (ACUTE) EXACERBATION Status: Acute (9) Hypokalemia Code(s): E87.6 - HYPOKALEMIA Status: Acute - Plan Extensive pneumonia and COPD with exacerbation - Appreciate Pulmonology consult -on clindamycin and levaquin - steroids changed to oral starting today - continue nebs - continue inhaled laba/steroid - continue florastor and prn cough medicine - oxygen supplementation Elevated blood sugars - do not see DM dx, may be related to steroids - continue ISS Poor PO intake - mighty shakes (strawberry) tid and prn Hypokalemia - pt requested liquid potassium replacement - will order with meals for 2 doses Weakness - PT/OT evals dvt prophy - lovenox gi prophy - not indicated code status - full reviewed plan of care with patient, no questions or further needs at end of eval.
--- NOTE | 2020-01-30 12:31 | PRG ---
DATE OF SERVICE: 01/30/2020 SUBJECTIVE: Anum Bejarano is a female, who is still feeling weak. OBJECTIVE: VITAL SIGNS: Temperature 98, , blood pressure 140/71. No cough. CHEST: Rhonchi, left greater than right. CARDIAC: Normal S1, S2. No gallops. ABDOMEN: No masses. LABORATORY STUDIES: White count 16,000, still big left shift, 53 segs, 31 bands. Lytes are normal. Extensive left upper lobe pneumonia appears to be necrotizing. So far, all cultures negative. Baseline chest x-ray tomorrow. Continue clindamycin, Levaquin, steroids. Job ID: [id number]
[2020-01-31] MEDS: Clindamycin/D5W 600 MG in Premix Bag 1 BAG IVPB SCH ×3 (05:51→21:24)
[2020-01-31] MEDS: Mometasone 200 MCG/Formoterol 5 MCG 120 PUFF INHALER INH SCH ×2 (06:17→19:36)
[2020-01-31 06:34] LABS: Hemoglobin 12.5 g/dL (12.0-16.0); Mean Corpuscular HGB CONC 31.8 g/dL (32.0-36.0); Mean Corpuscular Hemoglobin 28.9 pg (27.0-31.0); Mean Corpuscular Volume 91.1 fL (78.0-98.0); Mean Platelet Volume 6.9 fL (7.4-10.4); Platelet Count 376 thou/uL (130-400); RBC Distribution Width 13.4 % (11.5-14.5); Red Blood Cell (RBC) Count 4.31 mill/uL (4.20-5.40); White Blood Cell (WBC) Count 14.2 thou/uL (4.8-10.8)
[2020-01-31 06:44] LABS: Anion Gap 11 mmol/L (10-20); BUN (Urea Nitrogen) 17 mg/dL (9.8-20.1); Calc. Creatinine Clearance 96 mL/min (70-130); Calcium 9.1 mg/dL (7.8-10.44); Carbon Dioxide 34 mmol/L (23-31); Chloride 97 mmol/L (98-107); Estimated GFR-MDRD Greater than 90; Glucose 103 mg/dL (83-110); Potassium 3.8 mmol/L (3.5-5.1); Sodium 138 mmol/L (136-145)
[2020-01-31 07:03] LABS: Band 15 % (5-11); Lymphocytes 17 % (21-51); MDiff Complete? YES; Monocytes 1 % (0-10); Myelocyte 2 % (0-0); Neutrophil 65 % (42-75)
--- NOTE | 2020-01-31 10:25 | RAD ---
PA AND LATERAL VIEWS CHEST: Date: 01/31/2020 HISTORY: Pneumonia. COMPARISON: 01/27/2020. FINDINGS: There is residual patchy consolidation in the left lung with interval improvement since the previous study. The heart size is normal. The right lung is clear. Left-sided pacemaker device remains in plac e. IMPRESSION: Interval improvement of left-sided pneumonia without complete resolution. POS: [place]
[2020-01-31] MEDS: Enoxaparin Sodium 40 MG/0.4 ML SYRINGE SC SCH (10:29)
[2020-01-31] MEDS: Saccharomyces boulardii 250 MG CAP PO SCH (10:29)
[2020-01-31] MEDS: predniSONE 20 MG TAB PO SCH (10:29)
[2020-01-31] MEDS: Nicotine 21 MG PATCH TOP SCH (10:42)
--- NOTE | 2020-01-31 11:17 | PDOC.HOSPP ---
- Subjective Encounter Date: 01/31/20 Encounter Time: 11:11 Subjective: alert, less fattigue, sob. still has non-productive cough - Objective Vital Signs & Weight: Vital Signs (12 hours) Temp Pulse Resp BP BP BP Pulse Ox 01/31/20 09:37 01/31/20 07:30 97.9 F 83 15 132/76 97 01/31/20 06:15 85 16 96 01/31/20 04:00 98 F 82 18 130/77 94 L 01/31/20 00:24 16 01/31/20 00:00 97.8 F 77 18 139/79 100 Pulse Ox Pulse Ox 01/31/20 09:37 91 L 91 L 01/31/20 07:30 01/31/20 06:15 01/31/20 04:00 01/31/20 00:24 01/31/20 00:00 Weight Weight 137 lb 14.4 oz I&O: 01/30/20 01/31/20 02/01/20 06:59 06:59 06:59 Intake Total 1280 570 Balance 1280 570 Result Diagrams: 01/31/20 05:29 01/31/20 05:29 Additional Labs: Accuchecks 01/31/20 01/30/20 01/30/20 05:58 19:40 15:58 POC Glucose 100 235 H 142 H 01/30/20 01/29/20 11:43 11:41 POC Glucose 103 H 199 H Hospitalist ROS - Medication Medications: Active Medications Generic Name Dose Route Start Last Admin Trade Name Freq PRN Reason Stop Dose Admin Acetaminophen 650 mg 01/27/20 19:31 01/29/20 19:08 Acetaminophen 325 Mg Tab PO 650 mg Q4H PRN Administration Headache/Fever/Mild Pain (1-3) Albuterol/Ipratropium 3 ml 01/28/20 01:00 01/31/20 06:15 Ipratropium/Albuterol Sulfate 3 Ml Neb NEB [id number] [address] Administration Diphenhydramine HCl 25 mg 01/30/20 04:38 01/30/20 23:44 Diphenhydramine 25 Mg Cap PO 25 mg HSPRN PRN Administration Itching & Insomnia Enoxaparin Sodium 40 mg 01/28/20 09:00 01/31/20 10:29 Enoxaparin Sodium 40 Mg/0.4 Ml Syringe SC [address] Administration Clindamycin Phosphate/Dextrose 50 mls @ 100 mls/hr 01/28/20 14:00 01/31/20 05:51 600 mg/ Device IVPB [address] Administration Insulin Human Lispro 0 units 01/27/20 19:26 01/29/20 12:56 Humalog 300 Units/3 Ml Vial SC 2 unit .MODERATE SLIDING SC PRN Administration Moderate Correctional Scale Levofloxacin 750 mg 01/30/20 06:00 01/31/20 05:51 Levofloxacin 750 Mg Tab PO [address] Administration Mometasone Furoate/Formoterol Fumar 2 puff 01/28/20 18:30 01/31/20 06:17 Mometasone 200 Mcg/Formoterol 5 Mcg 120 Puff Inhaler INH 2 puff BID-RT LANE Administration Nicotine 21 mg 01/29/20 09:00 01/31/20 10:42 Nicotine 21 Mg Patch TOP [address] Administration Prednisone 40 mg 01/30/20 08:00 01/31/20 10:29 Prednisone 20 Mg Tab PO 40 mg QAM-WM LANE Administration Saccharomyces Boulardii 250 mg 01/30/20 09:00 01/31/20 10:29 Saccharomyces Boulardii 250 Mg Cap PO [address] Administration Throat Lozenges 1 logan 01/29/20 10:52 01/30/20 04:29 Cepastat Lozenges 1 Logan PO 1 logan Q2H PRN Administration Sore Throat Tramadol HCl 50 mg 01/30/20 04:38 01/30/20 17:25 Tramadol Hcl 50 Mg Tab PO 50 mg Q4H PRN Administration Pain - Exam General Appearance: awake alert Neck: no JVD Heart: RRR, no murmur Respiratory - other findings: rales [place] chest, otherwise clear Gastrointestinal: soft, non-tender, normal bowel sounds Extremities: no edema Hosp A/P (1) Acute respiratory failure with hypoxia Code(s): J96.01 - ACUTE RESPIRATORY FAILURE WITH HYPOXIA Status: Acute (2) COPD with exacerbation Code(s): J44.1 - CHRONIC OBSTRUCTIVE PULMONARY DISEASE W (ACUTE) EXACERBATION Status: Acute (3) Left upper lobe pneumonia Code(s): J18.9 - PNEUMONIA, UNSPECIFIED ORGANISM Status: Acute Qualifiers: Pneumonia type: due to unspecified organism Qualified Code(s): J18.9 - Pneumonia, unspecified organism (4) Coronary artery disease Code(s): I25.10 - ATHSCL HEART DISEASE OF [place] CORONARY ARTERY W/O ANG PCTRS Status: Chronic Qualifiers: Coronary Disease-Associated Artery/Lesion type: [place] artery [place] vs. transplanted heart: [place] heart Associated angina: without angina Qualified Code(s): I25.10 - Atherosclerotic heart disease of [place] coronary artery without angina pectoris (5) Dyslipidemia Code(s): E78.5 - HYPERLIPIDEMIA, UNSPECIFIED Status: Chronic (6) Hypertension Code(s): I10 - ESSENTIAL (PRIMARY) HYPERTENSION Status: Chronic Qualifiers: Hypertension type: essential hypertension Qualified Code(s): I10 - Essential (primary) hypertension - Plan cont O2 to keep Sat 92 cont iv steroids cont steroids, nebs, LABA selected home meds
[2020-01-31] MEDS: traMADol HCl 50 MG TAB PO PRN ×2 (16:06→21:23)
--- NOTE | 2020-01-31 20:08 | PRG ---
DATE OF SERVICE: 01/31/2020 SUBJECTIVE: Anum Bejarano is in no distress. She says she feels better when she was admitted. OBJECTIVE: VITAL SIGNS: She is afebrile, heart rate is in 80s, respiratory rates in the teens, oximetry is 96, and blood pressure 127/77. LUNGS: Clear. HEART: Regular rhythm. ABDOMEN: Soft. IMPRESSION: Necrotizing pneumonia, clinically improving. PLAN: Continue current care. May be able to switch her to p.o. antimicrobial therapy soon. Job ID: [id number]
[2020-01-31] MEDS: diphenhydrAMINE 50 MG CAP PO SCH (20:15)
[2020-02-01] MEDS: Clindamycin/D5W 600 MG in Premix Bag 1 BAG IVPB SCH (05:23)
[2020-02-01 07:04] LABS: Anion Gap 16 mmol/L (10-20); BUN (Urea Nitrogen) 18 mg/dL (9.8-20.1); Calc. Creatinine Clearance 98 mL/min (70-130); Calcium 8.7 mg/dL (7.8-10.44); Carbon Dioxide 22 mmol/L (23-31); Chloride 101 mmol/L (98-107); Estimated GFR-MDRD Greater than 90; Glucose 113 mg/dL (83-110); Potassium 4.5 mmol/L (3.5-5.1); Sodium 134 mmol/L (136-145)
[2020-02-01] MEDS: Mometasone 200 MCG/Formoterol 5 MCG 120 PUFF INHALER INH SCH ×2 (07:40→19:37)
[2020-02-01] MEDS: predniSONE 20 MG TAB PO SCH (08:57)
[2020-02-01] MEDS: Enoxaparin Sodium 40 MG/0.4 ML SYRINGE SC SCH (08:57)
[2020-02-01] MEDS: Saccharomyces boulardii 250 MG CAP PO SCH (08:57)
[2020-02-01] MEDS: Nicotine 21 MG PATCH TOP SCH (08:57)
[2020-02-01 09:27] LABS: Band 3 % (5-11); Hemoglobin 13.3 g/dL (12.0-16.0); Lymphocytes 16 % (21-51); MDiff Complete? YES; Mean Corpuscular HGB CONC 31.4 g/dL (32.0-36.0); Mean Corpuscular Hemoglobin 28.8 pg (27.0-31.0); Mean Corpuscular Volume 91.9 fL (78.0-98.0); Mean Platelet Volume 7.7 fL (7.4-10.4); Metamyelocyte 6 % (0-0); Monocytes 2 % (0-10); Myelocyte 2 % (0-0); Neutrophil 70 % (42-75); Platelet Count 312 thou/uL (130-400); Platelet Morphology Comment PLT clumps seen-ADEQ; RBC Distribution Width 13.5 % (11.5-14.5); RBC Morphology Normal; Reactive Lymphocytes 1 % (0-10); Red Blood Cell (RBC) Count 4.63 mill/uL (4.20-5.40); White Blood Cell (WBC) Count 10.7 thou/uL (4.8-10.8)
--- NOTE | 2020-02-01 10:25 | PDOC.HOSPP ---
- Subjective Encounter Date: 02/01/20 Encounter Time: 10:22 Subjective: dry cough. no fever. no sob - Objective Vital Signs & Weight: Vital Signs (12 hours) Temp Pulse Pulse Resp BP BP BP 02/01/20 09:19 82 120/73 02/01/20 07:42 72 16 02/01/20 07:37 97.7 F 73 20 120/72 02/01/20 04:00 98.3 F 70 20 145/82 H 02/01/20 00:13 84 16 02/01/20 00:00 97.6 F 78 20 126/77 Pulse Ox Pulse Ox Pulse Ox Pulse Ox 02/01/20 09:19 96 89 L 91 L 02/01/20 07:42 100 02/01/20 07:37 100 02/01/20 04:00 98 02/01/20 00:13 96 02/01/20 00:00 99 Weight Weight 137 lb 14.4 oz I&O: 01/31/20 02/01/20 02/02/20 06:59 06:59 06:59 Intake Total 570 1890 Balance 570 1890 Result Diagrams: 02/01/20 06:23 02/01/20 06:23 Additional Labs: Accuchecks 02/01/20 01/31/20 01/31/20 04:17 19:37 15:53 POC Glucose 93 127 H 142 H 01/31/20 01/29/20 11:19 11:41 POC Glucose 98 199 H Hospitalist ROS - Medication Medications: Active Medications Generic Name Dose Route Start Last Admin Trade Name Freq PRN Reason Stop Dose Admin Acetaminophen 650 mg 01/27/20 19:31 01/29/20 19:08 Acetaminophen 325 Mg Tab PO 650 mg Q4H PRN Administration Headache/Fever/Mild Pain (1-3) Albuterol/Ipratropium 3 ml 01/28/20 01:00 02/01/20 07:42 Ipratropium/Albuterol Sulfate 3 Ml Neb NEB [id number] [address] Administration Diphenhydramine HCl 25 mg 01/30/20 04:38 01/30/20 23:44 Diphenhydramine 25 Mg Cap PO 25 mg HSPRN PRN Administration Itching & Insomnia Diphenhydramine HCl 50 mg 01/31/20 21:00 01/31/20 20:15 Diphenhydramine 50 Mg Cap PO [address] Administration Enoxaparin Sodium 40 mg 01/28/20 09:00 02/01/20 08:57 Enoxaparin Sodium 40 Mg/0.4 Ml Syringe SC [address] Administration Insulin Human Lispro 0 units 01/27/20 19:26 01/29/20 12:56 Humalog 300 Units/3 Ml Vial SC 2 unit .MODERATE SLIDING SC PRN Administration Moderate Correctional Scale Levofloxacin 750 mg 01/30/20 06:00 02/01/20 05:23 Levofloxacin 750 Mg Tab PO [address] Administration Mometasone Furoate/Formoterol Fumar 2 puff 01/28/20 18:30 02/01/20 07:40 Mometasone 200 Mcg/Formoterol 5 Mcg 120 Puff Inhaler INH 2 puff BID-RT LANE Administration Nicotine 21 mg 01/29/20 09:00 02/01/20 08:57 Nicotine 21 Mg Patch TOP [address] Administration Prednisone 40 mg 01/30/20 08:00 02/01/20 08:57 Prednisone 20 Mg Tab PO 40 mg QAM-WM LANE Administration Saccharomyces Boulardii 250 mg 01/30/20 09:00 02/01/20 08:57 Saccharomyces Boulardii 250 Mg Cap PO [address] Administration Throat Lozenges 1 logan 01/29/20 10:52 01/30/20 04:29 Cepastat Lozenges 1 Logan PO 1 logan Q2H PRN Administration Sore Throat Tramadol HCl 50 mg 01/30/20 04:38 01/31/20 21:23 Tramadol Hcl 50 Mg Tab PO 50 mg Q4H PRN Administration Pain - Exam General Appearance: awake alert Neck: no JVD Heart: RRR, no murmur Respiratory: CTAB Gastrointestinal: soft, normal bowel sounds Extremities: no edema Hosp A/P (1) Acute respiratory failure with hypoxia Code(s): J96.01 - ACUTE RESPIRATORY FAILURE WITH HYPOXIA Status: Acute (2) COPD with exacerbation Code(s): J44.1 - CHRONIC OBSTRUCTIVE PULMONARY DISEASE W (ACUTE) EXACERBATION Status: Acute (3) Left upper lobe pneumonia Code(s): J18.9 - PNEUMONIA, UNSPECIFIED ORGANISM Status: Acute Qualifiers: Pneumonia type: due to unspecified organism Qualified Code(s): J18.9 - Pneumonia, unspecified organism (4) Coronary artery disease Code(s): I25.10 - ATHSCL HEART DISEASE OF [place] CORONARY ARTERY W/O ANG PCTRS Status: Chronic Qualifiers: Coronary Disease-Associated Artery/Lesion type: [place] artery [place] vs. transplanted heart: [place] heart Associated angina: without angina Qualified Code(s): I25.10 - Atherosclerotic heart disease of [place] coronary artery without angina pectoris (5) Dyslipidemia Code(s): E78.5 - HYPERLIPIDEMIA, UNSPECIFIED Status: Chronic (6) Hypertension Code(s): I10 - ESSENTIAL (PRIMARY) HYPERTENSION Status: Chronic Qualifiers: Hypertension type: essential hypertension Qualified Code(s): I10 - Essential (primary) hypertension - Plan cont O2 to keep Sat 92 po steroids, antibx taper O2 as able check exercise sats on RA
[2020-02-01] MEDS: Acetaminophen 325 MG TAB PO PRN ×2 (13:14→19:58)
[2020-02-01] MEDS: traMADol HCl 50 MG TAB PO PRN ×2 (13:15→19:58)
[2020-02-01] MEDS: Clindamycin 150 MG CAP PO SCH ×2 (13:15→21:20)
[2020-02-01] MEDS: diphenhydrAMINE 50 MG CAP PO SCH (19:58)
[2020-02-02] MEDS: Clindamycin 150 MG CAP PO SCH ×2 (05:12→14:04)
[2020-02-02] MEDS: Mometasone 200 MCG/Formoterol 5 MCG 120 PUFF INHALER INH SCH (07:25)
[2020-02-02 08:06] LABS: Mean Corpuscular HGB CONC 31.2 g/dL (32.0-36.0); Mean Corpuscular Volume 92.8 fL (78.0-98.0); Mean Platelet Volume 6.8 fL (7.4-10.4); Platelet Count 505 thou/uL (130-400); RBC Distribution Width 13.4 % (11.5-14.5); White Blood Cell (WBC) Count 9.3 thou/uL (4.8-10.8)
[2020-02-02 08:07] LABS: Anion Gap 13 mmol/L (10-20); BUN (Urea Nitrogen) 17 mg/dL (9.8-20.1); Calc. Creatinine Clearance 98 mL/min (70-130); Calcium 9.1 mg/dL (7.8-10.44); Carbon Dioxide 30 mmol/L (23-31); Chloride 98 mmol/L (98-107); Estimated GFR-MDRD Greater than 90; Glucose 88 mg/dL (83-110); Potassium 4.4 mmol/L (3.5-5.1); Sodium 137 mmol/L (136-145)
[2020-02-02 08:57] LABS: Band 3 % (5-11); Lymphocytes 21 % (21-51); MDiff Complete? YES; Metamyelocyte 1 % (0-0); Monocytes 6 % (0-10); Myelocyte 6 % (0-0); Neutrophil 63 % (42-75); Platelet Morphology Comment Appears Increased; Polychromasia SLIGHT = 2-3 cells (100X) (0-2/hpf)
[2020-02-02] MEDS: Saccharomyces boulardii 250 MG CAP PO SCH (09:24)
[2020-02-02] MEDS: predniSONE 20 MG TAB PO SCH (09:24)
[2020-02-02] MEDS: Enoxaparin Sodium 40 MG/0.4 ML SYRINGE SC SCH (09:24)
[2020-02-02] MEDS: Nicotine 21 MG PATCH TOP SCH (09:28)
--- NOTE | 2020-02-02 11:36 | PDOC.HOSPP ---
- Subjective Encounter Date: 02/02/20 Encounter Time: 11:34 Subjective: i feel good enough to go home - Objective Vital Signs & Weight: Vital Signs (12 hours) Temp Pulse Resp BP BP Pulse Ox 02/02/20 08:05 97.6 F 84 16 112/67 96 02/02/20 07:27 83 18 95 02/02/20 04:45 98.0 F 70 20 134/76 92 L 02/01/20 23:48 97.6 F 72 20 141/72 H 94 L Weight Weight 137 lb 14.4 oz I&O: 02/01/20 02/02/20 02/03/20 06:59 06:59 06:59 Intake Total 1890 1580 840 Balance 1890 1580 840 Result Diagrams: 02/02/20 07:03 02/02/20 07:03 Additional Labs: Accuchecks 02/02/20 02/02/20 02/02/20 11:07 07:53 04:49 POC Glucose 120 H 92 130 H 02/01/20 02/01/20 02/01/20 19:35 16:37 11:36 POC Glucose 153 H 198 H 132 H Hospitalist ROS - Medication Medications: Active Medications Generic Name Dose Route Start Last Admin Trade Name Freq PRN Reason Stop Dose Admin Acetaminophen 650 mg 01/27/20 19:31 02/01/20 19:58 Acetaminophen 325 Mg Tab PO 650 mg Q4H PRN Administration Headache/Fever/Mild Pain (1-3) Albuterol/Ipratropium 3 ml 01/28/20 01:00 02/02/20 07:27 Ipratropium/Albuterol Sulfate 3 Ml Neb NEB [address] [id number] [address] Administration Clindamycin HCl 300 mg 02/01/20 14:00 02/02/20 05:12 Clindamycin 150 Mg Cap PO [address] Administration Diphenhydramine HCl 25 mg 01/30/20 04:38 01/30/20 23:44 Diphenhydramine 25 Mg Cap PO 25 mg HSPRN PRN Administration Itching & Insomnia Diphenhydramine HCl 50 mg 01/31/20 21:00 02/01/20 19:58 Diphenhydramine 50 Mg Cap PO [address] Administration Enoxaparin Sodium 40 mg 01/28/20 09:00 02/02/20 09:24 Enoxaparin Sodium 40 Mg/0.4 Ml Syringe SC [address] Administration Insulin Human Lispro 0 units 01/27/20 19:26 01/29/20 12:56 Humalog 300 Units/3 Ml Vial SC 2 unit .MODERATE SLIDING SC PRN Administration Moderate Correctional Scale Levofloxacin 750 mg 01/30/20 06:00 02/02/20 05:12 Levofloxacin 750 Mg Tab PO 750 mg 0600 LAEN Administration Mometasone Furoate/Formoterol Fumar 2 puff 01/28/20 18:30 02/02/20 07:25 Mometasone 200 Mcg/Formoterol 5 Mcg 120 Puff Inhaler INH 2 puff BID-RT LANE Administration Nicotine 21 mg 01/29/20 09:00 02/02/20 09:28 Nicotine 21 Mg Patch TOP [address] Administration Prednisone 40 mg 01/30/20 08:00 02/02/20 09:24 Prednisone 20 Mg Tab PO 40 mg QAM-WM LANE Administration Saccharomyces Boulardii 250 mg 01/30/20 09:00 02/02/20 09:24 Saccharomyces Boulardii 250 Mg Cap PO [address] Administration Throat Lozenges 1 logan 01/29/20 10:52 01/30/20 04:29 Cepastat Lozenges 1 Logan PO 1 logan Q2H PRN Administration Sore Throat Tramadol HCl 50 mg 01/30/20 04:38 02/01/20 19:58 Tramadol Hcl 50 Mg Tab PO 50 mg Q4H PRN Administration Pain - Exam General Appearance: awake alert Neck: no JVD Heart: RRR, no murmur Respiratory: CTAB Gastrointestinal: soft, non-distended, normal bowel sounds Extremities: no edema Hosp A/P (1) Acute respiratory failure with hypoxia Code(s): J96.01 - ACUTE RESPIRATORY FAILURE WITH HYPOXIA Status: Acute (2) COPD with exacerbation Code(s): J44.1 - CHRONIC OBSTRUCTIVE PULMONARY DISEASE W (ACUTE) EXACERBATION Status: Acute (3) Left upper lobe pneumonia Code(s): J18.9 - PNEUMONIA, UNSPECIFIED ORGANISM Status: Acute Qualifiers: Pneumonia type: due to unspecified organism Qualified Code(s): J18.9 - Pneumonia, unspecified organism (4) Coronary artery disease Code(s): I25.10 - ATHSCL HEART DISEASE OF [place] CORONARY ARTERY W/O ANG PCTRS Status: Chronic Qualifiers: Coronary Disease-Associated Artery/Lesion type: [place] artery [place] vs. transplanted heart: [place] heart Associated angina: without angina Qualified Code(s): I25.10 - Atherosclerotic heart disease of [place] coronary artery witho ut angina pectoris (5) Dyslipidemia Code(s): E78.5 - HYPERLIPIDEMIA, UNSPECIFIED Status: Chronic (6) Hypertension Code(s): I10 - ESSENTIAL (PRIMARY) HYPERTENSION Status: Chronic Qualifiers: Hypertension type: essential hypertension Qualified Code(s): I10 - Essential (primary) hypertension - Plan cont O2 to keep Sat 92 po steroids, antibx taper O2 as able CM for home O2
[2020-02-02 13:29] VITALS: BP 117/70; TEMP 97.9
--- NOTE | 2020-02-02 14:18 | PRG ---
DATE OF SERVICE: 02/02/2020 SUBJECTIVE: Ms. Bejarano has no complaints. First thing she said when I walked into the room was "Am I going home." OBJECTIVE: VITAL SIGNS: She is afebrile. Heart rate is 88, respiratory rate 16, oximetry is 94% on 2 L. I have explained she will likely have to go home with oxygen. LUNGS: Clear. HEART: Regular rhythm. ABDOMEN: Soft. She is on p.o. antibiotics now and p.o. prednisone. I think it is reasonable for her to go home with oxygen and follow up with me for a chest x-ray in 4 to 6 weeks. She has a nebulizer at home. Job ID: [id number]
--- NOTE | 2020-02-02 15:17 | DIS ---
DATE OF ADMISSION: 01/27/2020 DATE OF DISCHARGE: 02/02/2020 PRIMARY CARE PHYSICIAN: Dr. Guanako Pino. DISPOSITION: Discharged home. FINAL DIAGNOSES: Acute respiratory failure with hypoxemia; pneumonia, left upper lobe; chronic obstructive pulmonary disease with exacerbation; sepsis; pacemaker; coronary artery disease; hypertension. DISCHARGE MEDICATIONS: 1. Cleocin 300 mg q.8 hours x7 days. 2. Levaquin 750 mg p.o. daily x7 days. 3. Dulera 200 mcg-5 mcg inhaler 2 puffs twice a day. 4. Prednisone 40 mg in declining dose over 16 days. 5. Florastor 250 mg a day. 6. Protonix 40 mg twice a day. 7. Zoloft 50 mg a day. 8. Amlodipine 5 mg a day. 9. Coreg 12.5 mg twice a day. 10. Plavix 75 mg a day. 11. Zetia 10 mg a day. HOSPITAL STAY: Admitted to the Hospitalist Service through [facility]. CONSULTATIONS: Dr. Raul Field, Pulmonology. HOSPITAL COURSE: The patient was admitted with shortness of breath, weakness, multiple medical problems, diagnosis of acute hypoxic respiratory failure, pneumonia, sepsis, lactic acidosis, chronic obstructive pulmonary disease with exacerbation, and coronary artery disease. The patient was initially started on a sepsis workup with cultures, IV antibiotics, IV steroids, and O2 to keep saturation greater than 92%. Initial laboratory; white count 32,300; hemoglobin 14.6; platelet count 390,000. This came down to white count of 10.7 and hemoglobin 13.3 on 01/31. Her initial comp metabolic profile showed a BUN of 39, creatinine 0.87, sodium 135, CO2 of 21, and potassium 3.5. Liver function tests unremarkable. Her followup metabolic profile was normal by 02/02/2020. She initially had an elevated lactic acid of 3.2. This came down to 2.0 within normal range quickly. SARS test was negative. Chest x-ray showed on admission a large left upper lobe pneumonia, which is markedly receded by the time of the final one done on 01/31/2020. A chest CT was done, which showed consolidation of the left upper lobe with some moderately severe mediastinal lymphadenopathy, which was considered reactive. No pulmonary embolism. The patient improved steadily during her hospital stay. On 01/31, her antibiotics were changed to oral. Today, she is doing well. Her chest is clear. She is still requiring 2 to 3 L per nasal cannula of oxygen. She is desirous of going home. Prescriptions for antibiotics etc., have been written. It has been arranged for her to have home O2 at 3 L per nasal cannula. She had been instructed to follow up with her PCP in 1 week. She will need followup chest x-rays until clear. She is of course to come back to the hospital if she gets worse for any particular reason. Job ID: [id number]
== END 2020-02-02 15:25 | disposition home or self-care (01) | DRG 871 ==
LOC: ERS 15:37 → T4-B 19:24
PROVIDERS: ADMIT Internal Medicine; ATTEND Internal Medicine
DX: A41.9 Sepsis, unspecified organism (principal); J96.01 Acute respiratory failure with hypoxia; J85.0 Gangrene and necrosis of lung; J44.1 Chronic obstructive pulmonary disease with (acute) exacerbation; J44.0 Chronic obstructive pulmonary disease with (acute) lower respiratory infection; E87.2 Acidosis; Z20.828 Contact with and (suspected) exposure to other viral communicable diseases; I25.10 Atherosclerotic heart disease of native coronary artery without angina pectoris; I10 Essential (primary) hypertension; E78.5 Hyperlipidemia, unspecified; E78.00 Pure hypercholesterolemia, unspecified; F32.9 Major depressive disorder, single episode, unspecified; F17.210 Nicotine dependence, cigarettes, uncomplicated; R73.9 Hyperglycemia, unspecified; E87.6 Hypokalemia; I25.2 Old myocardial infarction; Z95.0 Presence of cardiac pacemaker; Z90.49 Acquired absence of other specified parts of digestive tract; Z90.710 Acquired absence of both cervix and uterus; Z79.899 Other long term (current) drug therapy
CPT/HCPCS: 36415; 36416; 70450; 71045; 71046; 71275; 80048; 80053; 80202; 83605; 83735; 84484; 85025; 85060; 87040; 87070; 87205; 93005; 94640; 96365; 96367; 96375; J0456; J0692; J0696; J1650; J1956; J2405; J2920; J2930; J3370; J3490; J7050; J7512; J7620; Q0163; Q9967; U0002